=== PATIENT | male | born 1955 | race Caucasian/White ===

== ENCOUNTER 2023-01-01 16:18 | Inpatient (IN) | payer MEDICARE, OTHER ==
[~2023-01-01] VITALS: Ht 185.4 cm; Wt 78.5 kg
--- NOTE | 2023-01-01 16:35 | NUR ---
COVID SWAB COLLECTED AND SENT TO LAB
[2023-01-01 17:22] LABS: BASOPHILS % (AUTO) 0.2 % (0.0-2.0); EOSINOPHILS % (AUTO) 7.2 % (0.0-6.0); HEMATOCRIT 34 % (39-51); HEMOGLOBIN 9.5 g/dL (13.5-17.5); LYMPHOCYTES # (AUTO) 1.3 K/uL (0.8-4.8); MEAN CORPUSCULAR HGB CONC 28 g/dl (31.0-36.0); MEAN CORPUSCULAR VOLUME 114 fL (80-96); MONOCYTES # (AUTO) 0.8 K/uL (0.1-1.30); NEUTROPHILS % (AUTO) 44.6 % (43.0-81.0); PLATELET COUNT (AUTO) 77 K/uL (150-450); WHITE BLOOD COUNT (AUTO) 4.5 K/uL (4.3-11.0)
[2023-01-01 17:26] LABS: CALCIUM, SERUM 9.1 mg/dL (8.5-10.1); CARBON DIOXIDE 12 mmol/L (21-32); CHLORIDE 110 mmol/L (98-107); CREATININE 1.9 mg/dL (0.6-1.3); GLUCOSE 189 mg/dL (74-106); POTASSIUM 5.4 mmol/L (3.5-5.1); SODIUM SERUM 134 mmol/L (136-145); UREA NITROGEN, BLOOD 39 mg/dL (7-18)
[2023-01-01] MEDS ORDERED: AMLO5TAB4 PO (17:48)
[2023-01-01] MEDS ORDERED: ALOG12.52 PO (17:48)
[2023-01-01] MEDS ORDERED: OLAN20TA3 PO (17:48)
[2023-01-01] MEDS ORDERED: CARV12.5 PO (17:48)
[2023-01-01] MEDS ORDERED: FERR325T23 PO (17:48)
[2023-01-01] MEDS ORDERED: LACT10SO58 PO (17:48)
[2023-01-01] MEDS ORDERED: DIVA500T2 PO (17:48)
[2023-01-01] MEDS ORDERED: ACET325T53 PO (17:48)
[2023-01-01] MEDS ORDERED: GEMF600T90 PO (17:48)
[2023-01-01] MEDS ORDERED: ASPI-1169 PO (17:48)
[2023-01-01 18:30] LABS: EOSINOPHILS % (MANUAL) 10 % (0-4); LYMPHOCYTES % (MANUAL) 33 % (16-48); MONOCYTES % (MANUAL) 8 % (0-11.0); NEUTROPHILS % (MANUAL) 49 (42-76)
[2023-01-01 18:57] LABS: ALANINE AMINOTRANSFERASE 19 U/L (12-78); ALBUMIN 2.8 g/dL (3.4-5.0); ALKALINE PHOSPHATASE 111 U/L (46-116); ASPARTATE AMINOTRANSFERASE 25 U/L (15-37); BILIRUBIN,DIRECT 0.1 mg/dL (0.0-0.2); BILIRUBIN,TOTAL 0.1 mg/dL (0.2-1.0); TOTAL PROTEIN, SERUM 6.7 g/dL (6.4-8.2)
[2023-01-01 19:07] LABS: ACETAMINOPHEN < 10 ug/ml (10-30)
[2023-01-01 19:23] LABS: ALCOHOL, BLOOD < 3 mg/dL (0-0)
[2023-01-01] MEDS ORDERED: IV NS 0.9% 1,000 ML BAG IV ONE (19:30)
--- NOTE | 2023-01-01 20:18 | NUR ---
IV LINE ESTABLISHED, [id number]
--- NOTE | 2023-01-01 22:00 | NUR ---
REPORT GIVEN TO KENDRA QUINTANA FOR CONTINUATION OF CARE.
[2023-01-01 22:20] VITALS: BP 169/97
--- NOTE | 2023-01-01 22:22 | NUR ---
PT TRANSPORT ED OT UNIT ON [facility]. PT IS IN STABLE CONDITION. NAD NOTED
--- NOTE | 2023-01-01 22:23 | NUR ---
MS RN ADMITTING NOTES PT ARRIVED TO UNIT VIA GURNEY BY ER STAFF, ABLE TO AMBULATE TO BED WITH NO ASSIST. ORIENTED TO UNIT AND HOW TO USE CALL LIGHT. A/O X3, ABLE TO MAKE NEEDS KNOWN, COOPERATIVE, GETS ANXIOUS WHEN TALKING ABOUT HIS PREVIOUS FACILITY, [facility], SAYING HE WOULD RATHER GO HOMELESS THAN GO BACK. WEARING MULTIPLE LAYERS OF CLOTHING AND 4 BAGS OF BELONGINGS. DOCUMENTED AND PLACED IN CHART. ON RA WITH NO SOB. NO DISTRESS NOTED. DENIES PAIN AT THIS TIME AND STATING HE JUST WANTS TO GO SLEEP. SKIN INTACT WITH GENERAL DRYNESS ON BILATERAL TOES NOTED, DOCUMENTED IN CHART. PATIENT REFUSED TO TAKE OFF PANTS BUT WAS ABLE TO ASSESS SACRUM AND BILATERAL LEGS WITH NO ISSUES NOTED. IV ACCESS R HAND #20G, PATENT AND INTACT, FLUSHING WELL. SAFETY PRECAUTIONS PUT IN PLACE: BED LOCKED AND IN LOWEST POSITION, SIDE RAILS UP X2, BED ALARM ON, CALL LIGHT AND TRAY TABLE WITHIN REACH. WILL CONTINUE TO MONITOR AND ASSIST.
[2023-01-01] MEDS ORDERED: ONDANSETRON HCL/PF 4 MG/2 ML VIAL IVP PRN (22:30)
[2023-01-01] MEDS ORDERED: MAG HYDROX/AL HYDROX/SIMETH 30 ML UDC PO PRN (22:30)
[2023-01-01] MEDS ORDERED: MAGNESIUM HYDROXIDE 30 ML UDC PO PRN (22:30)
[2023-01-01] MEDS ORDERED: ZOLPIDEM TARTRATE 5 MG TABLET PO PRN (22:30)
[2023-01-01] MEDS ORDERED: IV NS 0.9% 1,000 ML IV PRN (22:30)
[2023-01-01] MEDS ORDERED: ACETAMINOPHEN 325 MG TABLET PO PRN ×2 (22:30)
[2023-01-01] MEDS ORDERED: Z GUARD REMEDY 4 OZ OINT TP PRN (22:30)
[2023-01-02 06:07] LABS: BILIRUBIN,URINE NEGATIVE (NEGATIVE); COLOR,URINE YELLOW (YELLOW); LEUKOCYTE ESTERASE ,URINE NEGATIVE (NEGATIVE); NITRITE, URINE NEGATIVE (NEGATIVE); PROTEIN,URINE NEGATIVE (NEGATIVE); UGLUCOSE NEGATIVE (NEGATIVE); UROBILINOGEN,URINE 0.2 EU/dL (0.2)
[2023-01-02 06:43] LABS: BASOPHILS % (AUTO) 0.4 % (0.0-2.0); EOSINOPHILS % (AUTO) 9.3 % (0.0-6.0); HEMATOCRIT 27 % (39-51); LYMPHOCYTES # (AUTO) 1.6 K/uL (0.8-4.8); LYMPHOCYTES % (AUTO) 37.8 % (20.0-44.0); MEAN CORPUSCULAR HGB CONC 33 g/dl (31.0-36.0); MEAN CORPUSCULAR VOLUME 98 fL (80-96); MONOCYTES # (AUTO) 0.9 K/uL (0.1-1.30); MONOCYTES % (AUTO) 22.2 % (2.0-12.0); NEUTROPHILS # (AUTO) 1.2 K/uL (1.8-8.9); NEUTROPHILS % (AUTO) 30.3 % (43.0-81.0); PLATELET COUNT (AUTO) 239 K/uL (150-450); RED BLOOD CELL COUNT(AUTO) 2.77 MIL/uL (4.5-6.0); WHITE BLOOD COUNT (AUTO) 4.1 K/uL (4.3-11.0)
--- NOTE | 2023-01-02 06:47 | NUR ---
MS RN CLOSING NOTES PT SLEEPING IN BED AT THIS TIME. A/O X3, ABLE TO MAKE NEEDS KNOWN, COOPERATIVE. STABLE ON RA WITH NO SOB. NO DISTRESS NOTED. NPO MAINTAINED UNTIL SWALLOW EVAL. IV ACCESS R HAND #20G, PATENT AND INTACT, FLUSHING WELL, RUNNING NS @ 125 ML/HR. ALL CARE PROVIDED. SAFETY PRECAUTIONS MAINTAINED: BED LOCKED AND IN LOWEST POSITION, SIDE RAILS UP X2, BED ALARM ON, CALL LIGHT AND TRAY TABLE WITHIN REACH. WILL ENDORSE [facility] TO DAY SHIFT NURSE.
[2023-01-02 07:06] LABS: CREATININE 1.7 mg/dL (0.6-1.3); MAGNESIUM 2.1 mg/dL (1.8-2.4); PHOSPHORUS 3.3 mg/dL (2.5-4.9); POTASSIUM 4.4 mmol/L (3.5-5.1)
--- NOTE | 2023-01-02 07:25 | NUR ---
MS RN OPENING NOTES RECEIVED PATIENT WALKING TO THE REST ROOM WITH HIS IV POLE, A/O X3, PLEASANT, ABLE TO MAKE NEEDS KNOWN, COOPERATIVE. STABLE ON RA WITH NO SOB. NOT IN ANY APPARENT DISTRESS NOTED. PT WAS ASKING FOR FOOD BUT ON NPO FOR DYSPHAGIA. WILL CONDUCT A NURSING SWALLOW EVALUATION FIRST, WILL MONITOR. IV ACCESS R HAND G#20. PATENT AND INTACT, FLUSHING WELL WITH RUNNING NS @ 125 ML/HR. PATIENT REFUSES TO CHANGE IN HOSPITAL GOWN, PATIENT HAS 3-4 BAGS FULL OF BELONGINGS AT BEDSIDE. SAFETY PRECAUTIONS MAINTAINED: BED LOCKED AND IN LOWEST POSITION, SIDE RAILS UP X2, BED ALARM ON, CALL LIGHT AND TRAY TABLE WITHIN EASY REACH. WILL CONTINUE PLAN OF CARE.
[2023-01-02 08:00] VITALS: BP 142/76
--- NOTE | 2023-01-02 08:20 | NUR ---
RN NOTES - PATIENT WAS ABLE TO PASS SIMPLE NURSING EVAL TOOL, DR PALAK SHER AWARE. FOOD ORDERED FROM THE KITCHEN.
--- NOTE | 2023-01-02 08:25 | NUR ---
RN NOTES - PSYCHE CONSULT WITH DR LUZ MARIA MONROE MD AWARE.
[2023-01-02] MEDS ORDERED: FERROUS SULFATE (325 MG) 325 MG/TAB TABLET PO SCH (09:00)
[2023-01-02] MEDS ORDERED: ASPIRIN 81 MG TAB.CHEW PO SCH (09:00)
[2023-01-02] MEDS ORDERED: ALOGLIPTIN BENZOATE 12.5 MG PO SCH (09:00)
[2023-01-02] MEDS ORDERED: GEMFIBROZIL 600 MG TABLET PO SCH (09:00)
[2023-01-02] MEDS ORDERED: LACTULOSE 10 G/15 ML UDC (PYXIS) PO SCH (09:00)
[2023-01-02] MEDS ORDERED: AMLODIPINE BESYLATE 5 MG TABLET PO SCH (09:00)
[2023-01-02] MEDS ORDERED: CARVEDILOL 12.5 MG TABLET PO SCH (09:00)
[2023-01-02] MEDS ORDERED: DIVALPROEX SODIUM 500 MG TABLET.DR PO SCH (09:00)
[2023-01-02] MEDS ORDERED: LINAGLIPTIN 5 MG TABLET PO SCH (09:00)
[2023-01-02] MEDS ORDERED: IV D5/0.45 NACL 1,000 ML IV SCH (09:00)
--- NOTE | 2023-01-02 09:00 | NUR ---
RN NOTES - PT REFUSED PT EVAL AND WANTED TO LEAVE AMA
--- NOTE | 2023-01-02 09:35 | NUR ---
AMA NOTES PATIENT IS AOX3-4 WAS ASSESSED AND SEEN BY DR PALAK SHER AT BEDSIDE, PATIENT REFUSING MEDS AND PHYSICAL THERAPY. VERBALIZED THAT HE WANTS TO LEAVE THE HOSPITAL AMA AND WON'T TELL WHERE HE'S GOING. PATIENT DIDNT WANT TO BRING HIS BAGS WITH HIM DESPITE ENCOURAGEMENT. SECURITY WAS ASKED FOR ASSISTANCE BUT HE STILL REFUSED, HE SAID TO THROW AWAY HIS BELONGINGS WITNESSED BY JOB SITE SUPERVISOR AND CHARGE NURSE WELL. PATIENT IS AWARE OF THE RISKS AND CONSEQUENCES OF LEAVING AMA BUT STILL INSISTED IN LEAVING. PT SIGNED AMA FORM, IV ACCESS REMOVED AND PRESSURE GAUZE APPLIED, NO BLEEDING NOTED. ARM BAND REMOVED. PT LEFT THE UNIT IN JUST HIS CLOTHES AND SHOES AMBULATORY ACCOMPANIED BY SECURITY AT AROUND 0930 AM. IS AWARE.
[2023-01-02 14:20] LABS: BAND % (MANUAL) 2 % (0.0-5.0); EOSINOPHILS % (MANUAL) 11 % (0-4); LYMPHOCYTES % (MANUAL) 37 % (16-48); MONOCYTES % (MANUAL) 20 % (0-11.0); NEUTROPHILS % (MANUAL) 30 (42-76)
[2023-01-02] MEDS ORDERED: OLANZAPINE 10 MG TABLET PO SCH (22:00)
== END 2023-01-02 09:45 | disposition left against medical advice (07) | DRG 682 ==
LOC: ER 18:10 → MED 21:51
PROVIDERS: ADMIT Nurse Practitioner Acute Care; ATTEND Internal Medicine
DX: N17.0 Acute kidney failure with tubular necrosis (principal); G93.41 Metabolic encephalopathy; F20.0 Paranoid schizophrenia; E44.0 Moderate protein-calorie malnutrition; E86.0 Dehydration; R62.7 Adult failure to thrive; Z88.8 Allergy status to other drugs, medicaments and biological substances; Z79.82 Long term (current) use of aspirin; Z79.899 Other long term (current) drug therapy; E11.9 Type 2 diabetes mellitus without complications; I10 Essential (primary) hypertension; E78.5 Hyperlipidemia, unspecified; D64.9 Anemia, unspecified; E87.5 Hyperkalemia; F32.9 Major depressive disorder, single episode, unspecified; F03.90 Unspecified dementia, unspecified severity, without behavioral disturbance, psychotic disturbance, mood disturbance, and anxiety; E88.09 Other disorders of plasma-protein metabolism, not elsewhere classified
CPT/HCPCS: 36415; 76770-TC; 80048-TC; 80076-TC; 82962-TC; 83735-TC; 84100-TC; 85025-TC; 87081-TC; C9803; G0378; G0480; J3490; J7030

== ENCOUNTER 2023-01-02 14:17 | Inpatient (IN) | payer MEDICARE, OTHER ==
[~2023-01-02] VITALS: Ht 188 cm; Wt 81.6 kg
[~2023-01-02 14:17] MED LIST: ACET325T53 PO; ALOG12.52 PO; AMLO5TAB4 PO; ASPI-1169 PO; CARV12.5 PO; DIVA500T2 PO; FERR325T23 PO; GEMF600T90 PO; LACT10SO58 PO; OLAN20TA3 PO
--- NOTE | 2023-01-02 14:30 | NUR ---
Security notified - pt wanding for safety done. Suicidal precautions initated. Sitter Lauren aware- on direct line of sight and increase rounding
--- NOTE | 2023-01-02 15:00 | NUR ---
Pt aware of plan of care. Urine sent
[2023-01-02 15:13] LABS: BASOPHILS % (AUTO) 0.3 % (0.0-2.0); EOSINOPHILS % (AUTO) 8.2 % (0.0-6.0); HEMATOCRIT 28 % (39-51); LYMPHOCYTES # (AUTO) 1.1 K/uL (0.8-4.8); LYMPHOCYTES % (AUTO) 25.7 % (20.0-44.0); MEAN CORPUSCULAR HGB CONC 32 g/dl (31.0-36.0); MEAN CORPUSCULAR VOLUME 99 fL (80-96); MONOCYTES # (AUTO) 0.6 K/uL (0.1-1.30); NEUTROPHILS # (AUTO) 2.1 K/uL (1.8-8.9); NEUTROPHILS % (AUTO) 50.8 % (43.0-81.0); PLATELET COUNT (AUTO) 256 K/uL (150-450); RED BLOOD CELL COUNT(AUTO) 2.83 MIL/uL (4.5-6.0); WHITE BLOOD COUNT (AUTO) 4.2 K/uL (4.3-11.0)
[2023-01-02 15:46] LABS: BILIRUBIN,URINE NEGATIVE (NEGATIVE); COLOR,URINE YELLOW (YELLOW); LEUKOCYTE ESTERASE ,URINE NEGATIVE (NEGATIVE); NITRITE, URINE NEGATIVE (NEGATIVE); PROTEIN,URINE 1+ mg/dl (NEGATIVE); UGLUCOSE NEGATIVE (NEGATIVE); UROBILINOGEN,URINE 0.2 EU/dL (0.2)
[2023-01-02 15:55] LABS: BACTERIA,URINE None seen /HPF (None Seen); MUCUS,URINE Few /LPF (None Seen); RBC,URINE 0-2 /HPF (0-2); WBC,URINE 0-2 /HPF (0-3)
[2023-01-02 15:59] LABS: ALANINE AMINOTRANSFERASE 16 U/L (12-78); ALBUMIN 2.6 g/dL (3.4-5.0); ALKALINE PHOSPHATASE 103 U/L (46-116); ASPARTATE AMINOTRANSFERASE 21 U/L (15-37); BILIRUBIN,DIRECT 0.1 mg/dL (0.0-0.2); BILIRUBIN,TOTAL 0.1 mg/dL (0.2-1.0); CALCIUM, SERUM 8.7 mg/dL (8.5-10.1); CARBON DIOXIDE 18 mmol/L (21-32); CHLORIDE 113 mmol/L (98-107); CREATININE 1.8 mg/dL (0.6-1.3); GLUCOSE 246 mg/dL (74-106); SODIUM SERUM 141 mmol/L (136-145); TOTAL PROTEIN, SERUM 6.4 g/dL (6.4-8.2); UREA NITROGEN, BLOOD 33 mg/dL (7-18)
[2023-01-02 16:04] LABS: ALCOHOL, BLOOD < 3 mg/dL (0-0)
[2023-01-02 16:17] LABS: EOSINOPHILS % (MANUAL) 7 % (0-4); LYMPHOCYTES % (MANUAL) 18 % (16-48); MONOCYTES % (MANUAL) 15 % (0-11.0); NEUTROPHILS % (MANUAL) 59 (42-76); REACTIVE LYMPHOCYTES 1 % (0-0)
--- NOTE | 2023-01-02 17:08 | NUR ---
Awaiting psych clearance and placement. NO acute changes
--- NOTE | 2023-01-02 17:14 | NUR ---
Pt medically cleared for alex-psych admission. Going to room 214. Dinner provided
[2023-01-02] MEDS ORDERED: LORAZEPAM 0.5 MG TABLET PO PRN (18:00)
[2023-01-02] MEDS ORDERED: MAG HYDROX/AL HYDROX/SIMETH 30 ML UDC PO PRN (18:00)
[2023-01-02] MEDS ORDERED: BLOOD SUGAR DIAGNOSTIC 1 EACH STRIP IN ONE (18:00)
[2023-01-02] MEDS ORDERED: MAGNESIUM HYDROXIDE 30 ML UDC PO PRN (18:00)
[2023-01-02] MEDS ORDERED: ACETAMINOPHEN 325 MG TABLET PO PRN ×2 (18:00→22:30)
[2023-01-02 18:19] VITALS: BP 152/72
--- NOTE | 2023-01-02 18:42 | NUR ---
Admitted voluntary a 67 years old male for paranoia and auditory hallucinations. Pt. is scared that people are after him and pt. is with auditory hallucinations and the voices is telling him that he is not good. Pt. left AMA in the medical floor this morning and came back to ER for voluntary admission to [facility]. ER doctor cleared pt. for psych admission as per report by Rajinder (ER nurse). Pt. arrive in the unit via a wheelchair and wheeled by ER staff. Pt. escorted to room 216B. V/S taken, contraband taken and pt. signed the admissions papers. Dr. Paige made aware of the admission and with orders. Contacted Dr. Martinez and left a message regarding the admission and awaiting for the call back. Will endorse to the incoming nurse for the completion of the admission. Addendum: 01/02/23 at 1852 by JOE LUNA RN Pt. denies suicidal and homicidal
--- NOTE | 2023-01-02 20:30 | NUR ---
RN NOTES: PATIENT RESTING IN HIS ROOM . NO APPARENT DISTRESS NOTED, PATIENT EASILY AGITATED/IRRITABLE, PARANOID ,GUARDER NEEDY, NEEDS FREQUENTLY REDIRECTIONS ,DENIES SI/HI/ AT THIS TIME. SAFETY PRECAUTIONS MAINTAINED. WILL CONTINUE TO MONITOR Q15MIN ROUNDS FOR SAFETY AND BEHAVIOR.
[2023-01-02 21:00] VITALS: BP 134/68
[2023-01-03] MEDS ORDERED: DEXTROSE 50%-WATER 50 ML DISP.SYRIN IV PRN (01:30)
[2023-01-03] MEDS ORDERED: *INSULIN REGULAR(HUMULIN R)HUM 100 UNIT/ML VIAL SQ PRN (01:30)
--- NOTE | 2023-01-03 05:59 | NUR ---
RN NOTES: REFUSED SKIN ASSESSMENT AND PHOTOS TAKEN PT. REFUSED SKIN ASSESSMENT AND PHOTOS TAKEN , PT. BEHAVIOUR VERY UNCOOPERTIVE , AGGRESSIVE ,PARANOID , ENCOURAGED X3 BUT PT. STRONGLY REFUSED AND PT. STATES LIVE ME ALONE,
--- NOTE | 2023-01-03 06:53 | NUR ---
RN NOTES: CALLED AND LEFT VOICE MAIL MESSAGES TO CHANTALE HOFFMANN # [phone], REGARDING ABOUT PT. ADMITTED TO [facility] .
[2023-01-03 07:45] LABS: ALBUMIN 2.3 g/dL (3.4-5.0); BILIRUBIN,TOTAL 0.1 mg/dL (0.2-1.0); CALCIUM, SERUM 8.7 mg/dL (8.5-10.1); CREATININE 1.6 mg/dL (0.6-1.3); POTASSIUM 4.2 mmol/L (3.5-5.1)
[2023-01-03 08:00] VITALS: BP 126/56
[2023-01-03] MEDS: BLOOD SUGAR DIAGNOSTIC 1 EACH STRIP VI SCH ×4 (08:29→20:36)
[2023-01-03] MEDS: ASPIRIN 81 MG TAB.CHEW PO SCH (08:30)
[2023-01-03] MEDS: CARVEDILOL 12.5 MG TABLET PO SCH ×2 (08:30→17:05)
[2023-01-03] MEDS: GEMFIBROZIL 600 MG TABLET PO SCH ×2 (08:30→17:05)
[2023-01-03] MEDS: FERROUS SULFATE (325 MG) 325 MG/TAB TABLET PO SCH (08:30)
[2023-01-03] MEDS: LACTULOSE 10 G/15 ML UDC (PYXIS) PO SCH (08:30)
[2023-01-03] MEDS: AMLODIPINE BESYLATE 5 MG TABLET PO SCH (08:31)
[2023-01-03] MEDS: LINAGLIPTIN 5 MG TABLET PO SCH (08:31)
--- NOTE | 2023-01-03 08:31 | NUR ---
GPS/RN PT REFUSED INSULIN COVERAGE AND AM MEDS. OFFERED X3
[2023-01-03] MEDS ORDERED: ALOGLIPTIN BENZOATE 12.5 MG PO SCH (09:00)
[2023-01-03] MEDS: OLANZAPINE 5 MG TABLET PO SCH ×2 (12:15→17:04)
[2023-01-03] MEDS: DIVALPROEX SODIUM 500 MG TABLET.DR PO SCH ×2 (12:15→20:35)
[2023-01-03] MEDS: INSULIN REGULAR, HUMAN 100 UNIT/ML 3 ML VIAL SQ PRN (12:22)
--- NOTE | 2023-01-03 12:23 | NUR ---
GPS RN NOTES - PT ALLOWED TO CHECK FOR POC BS -172, ADVISED NEED COVERAGE FOR INSULIN BUT REFUSED DESPITE EDUCATION.
[2023-01-03 16:00] VITALS: BP 156/68
--- NOTE | 2023-01-03 17:00 | NUR ---
GPS RN NOTES -CLEAN CATCH URINE COLLECTED, LAB IS AWARE, AWAITING POLITICAL CARTOONIST
[2023-01-03 20:24] VITALS: BP 134/63
--- NOTE | 2023-01-04 04:33 | NUR ---
RN CLOSING NOTES: ALERT AND ORIENTATED x2 WAS IN BED IN HIS ROOM THIS 12 HOURS NOTED SLEEPS WITH HIS CLOTHES AND SHOES ON TOOK HS MEDICATIONS AND WAS COOPERATIVE AND PLEASANT. BLOOD SUGAR 177 REFUSED INSULIN COVERAGE ..."I DON'T NEED IT, IT WILL COME DOWN ON ITS OWN,DON'T GIVE IT TO ME" HE DIDN'T WANT TO HAVE ME EXPLAIN WHY AND SHOULD TAKE INSULIN. HE WAS PLEASANT ABOUT IT. NO PRNS THIS 12 HOURS
[2023-01-04 07:02] LABS: BASOPHILS % (AUTO) 0.4 % (0.0-2.0); EOSINOPHILS % (AUTO) 8.5 % (0.0-6.0); HEMATOCRIT 28 % (39-51); HEMOGLOBIN 9.2 g/dL (13.5-17.5); LYMPHOCYTES # (AUTO) 2.5 K/uL (0.8-4.8); LYMPHOCYTES % (AUTO) 45.9 % (20.0-44.0); MEAN CORPUSCULAR HGB CONC 33 g/dl (31.0-36.0); MEAN CORPUSCULAR VOLUME 99 fL (80-96); MONOCYTES # (AUTO) 0.7 K/uL (0.1-1.30); NEUTROPHILS # (AUTO) 1.8 K/uL (1.8-8.9); NEUTROPHILS % (AUTO) 32.2 % (43.0-81.0); PLATELET COUNT (AUTO) 263 K/uL (150-450); RED BLOOD CELL COUNT(AUTO) 2.86 MIL/uL (4.5-6.0); WHITE BLOOD COUNT (AUTO) 5.5 K/uL (4.3-11.0)
[2023-01-04 07:25] LABS: ALBUMIN 2.4 g/dL (3.4-5.0); BILIRUBIN,TOTAL 0.2 mg/dL (0.2-1.0); CALCIUM, SERUM 8.8 mg/dL (8.5-10.1); CREATININE 1.6 mg/dL (0.6-1.3); POTASSIUM 4.5 mmol/L (3.5-5.1); TOTAL PROTEIN, SERUM 6.2 g/dL (6.4-8.2)
[2023-01-04] MEDS: BLOOD SUGAR DIAGNOSTIC 1 EACH STRIP VI SCH ×4 (07:30→21:47)
[2023-01-04 08:00] VITALS: BP 133/75
[2023-01-04] MEDS: LACTULOSE 10 G/15 ML UDC (PYXIS) PO SCH (09:10)
[2023-01-04] MEDS: ASPIRIN 81 MG TAB.CHEW PO SCH (09:10)
[2023-01-04] MEDS: CARVEDILOL 12.5 MG TABLET PO SCH ×2 (09:11→16:44)
[2023-01-04] MEDS: FERROUS SULFATE (325 MG) 325 MG/TAB TABLET PO SCH (09:11)
[2023-01-04] MEDS: DIVALPROEX SODIUM 500 MG TABLET.DR PO SCH ×2 (09:11→21:18)
[2023-01-04] MEDS: GEMFIBROZIL 600 MG TABLET PO SCH ×2 (09:12→16:43)
[2023-01-04] MEDS: OLANZAPINE 5 MG TABLET PO SCH ×2 (09:13→16:43)
[2023-01-04] MEDS: LINAGLIPTIN 5 MG TABLET PO SCH (09:13)
[2023-01-04] MEDS: AMLODIPINE BESYLATE 5 MG TABLET PO SCH (09:13)
[2023-01-04] MEDS: INSULIN REGULAR, HUMAN 100 UNIT/ML 3 ML VIAL SQ PRN ×2 (11:24→16:51)
--- NOTE | 2023-01-04 11:26 | NUR ---
Treatment Plan: Pt refused to sign treatment plan and was suspicious even after SW explaining.
--- NOTE | 2023-01-04 11:26 | NUR ---
ALEXANDRA Clinical Note: Pt admitted as a voluntary pt. Pt wants a place to go to and wants to get his medications adjusted. Patient currently resides at [address] [place] [address]; ([phone]). Pt does not want to return back and would want a SNF. Pt does not have any supportive contact at this time.
--- NOTE | 2023-01-04 11:26 | NUR ---
ALEXANDRA Initial Discharge Plan: Patient currently resides at [address] [place] [address]; ([phone]). Pt does not want to return back and would want a SNF. Pt does not have any supportive contact at this time. ALEXANDRA will work with the MD and pt to help coordinate appropriate discharge.
--- NOTE | 2023-01-04 14:12 | NUR ---
LPS Conservator: ALEXANDRA contacted pt's person to notify Elisa ([phone]). She stated that she is from the public guardian office and she is the LPS conservator. She will fax this senior writer minute order and detain and treat. She stated that pt was from [facility] and would want pt back to [facility]. ALEXANDRA notified [facility] charge nurse and Dr. Paige.
--- NOTE | 2023-01-04 14:13 | NUR ---
Facility Contact: ALEXANDRA contacted Inderjit foreman from [facility] ([phone]) and notified that pt is at the hospital and he stated that when pt is stable pt can return back.
--- NOTE | 2023-01-04 14:18 | NUR ---
LPS Conservator: ALEXANDRA contacted pt's person to notify Elisa ([phone]). She faxed this telegraphic typewriter mechanic detain and treat and minute order. ALEXANDRA placed in pt's chart and notified charge nurse Homa.
[2023-01-04 16:00] VITALS: BP 124/63
[2023-01-04 21:10] VITALS: BP 123/50
[2023-01-05 07:14] LABS: BASOPHILS % (AUTO) 0.4 % (0.0-2.0); EOSINOPHILS % (AUTO) 9.4 % (0.0-6.0); HEMATOCRIT 26 % (39-51); HEMOGLOBIN 8.6 g/dL (13.5-17.5); LYMPHOCYTES # (AUTO) 2.2 K/uL (0.8-4.8); LYMPHOCYTES % (AUTO) 42.8 % (20.0-44.0); MEAN CORPUSCULAR HGB CONC 33 g/dl (31.0-36.0); MEAN CORPUSCULAR VOLUME 99 fL (80-96); MONOCYTES # (AUTO) 0.8 K/uL (0.1-1.30); MONOCYTES % (AUTO) 14.9 % (2.0-12.0); NEUTROPHILS # (AUTO) 1.7 K/uL (1.8-8.9); NEUTROPHILS % (AUTO) 32.5 % (43.0-81.0); PLATELET COUNT (AUTO) 260 K/uL (150-450); RED BLOOD CELL COUNT(AUTO) 2.66 MIL/uL (4.5-6.0); WHITE BLOOD COUNT (AUTO) 5.1 K/uL (4.3-11.0)
[2023-01-05] MEDS: BLOOD SUGAR DIAGNOSTIC 1 EACH STRIP VI SCH ×4 (07:30→21:24)
[2023-01-05 07:33] LABS: ALBUMIN 2.3 g/dL (3.4-5.0); BILIRUBIN,TOTAL 0.1 mg/dL (0.2-1.0); CALCIUM, SERUM 8.8 mg/dL (8.5-10.1); CREATININE 1.6 mg/dL (0.6-1.3); POTASSIUM 4.6 mmol/L (3.5-5.1)
[2023-01-05 07:57] LABS: CREATININE, URINE 71.9 MG/DL (30.0-125.0)
[2023-01-05 08:00] VITALS: BP 130/56
[2023-01-05] MEDS: DIVALPROEX SODIUM 500 MG TABLET.DR PO SCH ×2 (09:10→21:26)
[2023-01-05] MEDS: FERROUS SULFATE (325 MG) 325 MG/TAB TABLET PO SCH (09:11)
[2023-01-05] MEDS: OLANZAPINE 5 MG TABLET PO SCH ×2 (09:11→16:19)
[2023-01-05] MEDS: ASPIRIN 81 MG TAB.CHEW PO SCH (09:11)
[2023-01-05] MEDS: LINAGLIPTIN 5 MG TABLET PO SCH (09:11)
[2023-01-05] MEDS: AMLODIPINE BESYLATE 5 MG TABLET PO SCH (09:11)
[2023-01-05] MEDS: CARVEDILOL 12.5 MG TABLET PO SCH ×2 (09:12→16:20)
[2023-01-05] MEDS: GEMFIBROZIL 600 MG TABLET PO SCH ×2 (09:12→16:19)
[2023-01-05] MEDS: LACTULOSE 10 G/15 ML UDC (PYXIS) PO SCH (09:12)
--- NOTE | 2023-01-05 13:31 | NUR ---
SW Note: SW spoke with pt multiple times today in regards to [facility] and stated that LPS would want pt to return back.
[2023-01-05 16:00] VITALS: BP 120/66
[2023-01-06] MEDS: BLOOD SUGAR DIAGNOSTIC 1 EACH STRIP VI SCH ×4 (07:30→22:00)
[2023-01-06 08:00] VITALS: BP 132/65
[2023-01-06] MEDS: OLANZAPINE 5 MG TABLET PO SCH ×2 (08:30→17:19)
[2023-01-06] MEDS: ASPIRIN 81 MG TAB.CHEW PO SCH (08:30)
[2023-01-06] MEDS: FERROUS SULFATE (325 MG) 325 MG/TAB TABLET PO SCH (08:30)
[2023-01-06] MEDS: GEMFIBROZIL 600 MG TABLET PO SCH ×2 (08:30→17:19)
[2023-01-06] MEDS: LACTULOSE 10 G/15 ML UDC (PYXIS) PO SCH (08:30)
[2023-01-06] MEDS: LINAGLIPTIN 5 MG TABLET PO SCH (08:30)
[2023-01-06] MEDS: CARVEDILOL 12.5 MG TABLET PO SCH ×2 (08:31→17:19)
[2023-01-06] MEDS: DIVALPROEX SODIUM 500 MG TABLET.DR PO SCH ×2 (08:31→21:48)
[2023-01-06] MEDS: AMLODIPINE BESYLATE 5 MG TABLET PO SCH (08:31)
--- NOTE | 2023-01-06 14:17 | NUR ---
NURSE NOTE: ENCOURAGED PT TO DRINK FLUIDS, BUT PT STATED THAT HE DOES NOT LIKE TO BECAUSE IT MAKES HIM GO TO THE BATHROOM TOO MUCH. ENCOURAGED TO TRY.
[2023-01-06 15:19] LABS: BASOPHILS % (AUTO) 0.3 % (0.0-2.0); EOSINOPHILS % (AUTO) 9.2 % (0.0-6.0); HEMATOCRIT 29 % (39-51); HEMOGLOBIN 9.4 g/dL (13.5-17.5); LYMPHOCYTES # (AUTO) 1.5 K/uL (0.8-4.8); LYMPHOCYTES % (AUTO) 29.9 % (20.0-44.0); MEAN CORPUSCULAR HGB CONC 32 g/dl (31.0-36.0); MEAN CORPUSCULAR VOLUME 99 fL (80-96); MONOCYTES # (AUTO) 0.6 K/uL (0.1-1.30); MONOCYTES % (AUTO) 12.5 % (2.0-12.0); NEUTROPHILS # (AUTO) 2.5 K/uL (1.8-8.9); NEUTROPHILS % (AUTO) 48.1 % (43.0-81.0); PLATELET COUNT (AUTO) 297 K/uL (150-450); RED BLOOD CELL COUNT(AUTO) 2.93 MIL/uL (4.5-6.0); WHITE BLOOD COUNT (AUTO) 5.1 K/uL (4.3-11.0)
[2023-01-06 15:36] LABS: ALBUMIN 2.8 g/dL (3.4-5.0); BILIRUBIN,TOTAL 0.1 mg/dL (0.2-1.0); CREATININE 1.8 mg/dL (0.6-1.3); TOTAL PROTEIN, SERUM 7.1 g/dL (6.4-8.2)
[2023-01-06 16:00] VITALS: BP 127/64
--- NOTE | 2023-01-06 17:35 | NUR ---
NURSE NOTE: PT ANXIOUS AT THIS TIME. REQUESTED KLONOPIN AT THIS TIME. KLONOPIN ADMINISTERED ORDERED. PT RAYMUNDO WELL, WILL CONT TO MONITOR. Addendum: 01/06/23 at 1759 by REBECA SALMON RN WRONG PT.
[2023-01-06 21:33] VITALS: BP 116/59
--- NOTE | 2023-01-06 21:47 | NUR ---
ACETYLENE BURNER NOTES: Patient refused to checked blood sugar, stating that he is not diabetic and does not check it at home. Explain why he needs to monitor blood sugar level and encourage patient, but still declined.
[2023-01-06] MEDS: ZOLPIDEM TARTRATE 5 MG TABLET PO PRN (21:59)
[2023-01-07] MEDS: BLOOD SUGAR DIAGNOSTIC 1 EACH STRIP VI SCH ×4 (07:40→21:10)
[2023-01-07 08:00] VITALS: BP 112/64
[2023-01-07] MEDS: LINAGLIPTIN 5 MG TABLET PO SCH (08:41)
[2023-01-07] MEDS: LACTULOSE 10 G/15 ML UDC (PYXIS) PO SCH (08:41)
[2023-01-07] MEDS: ASPIRIN 81 MG TAB.CHEW PO SCH (08:41)
[2023-01-07] MEDS: DIVALPROEX SODIUM 500 MG TABLET.DR PO SCH ×2 (08:41→20:51)
[2023-01-07] MEDS: GEMFIBROZIL 600 MG TABLET PO SCH ×2 (08:41→17:00)
[2023-01-07] MEDS: FERROUS SULFATE (325 MG) 325 MG/TAB TABLET PO SCH (08:41)
[2023-01-07] MEDS: OLANZAPINE 5 MG TABLET PO SCH ×2 (08:41→17:00)
[2023-01-07] MEDS: AMLODIPINE BESYLATE 5 MG TABLET PO SCH (08:42)
[2023-01-07] MEDS: CARVEDILOL 12.5 MG TABLET PO SCH ×2 (08:42→17:00)
[2023-01-07 12:03] LABS: BASOPHILS % (AUTO) 0.3 % (0.0-2.0); EOSINOPHILS % (AUTO) 11.4 % (0.0-6.0); HEMATOCRIT 26 % (39-51); HEMOGLOBIN 8.4 g/dL (13.5-17.5); LYMPHOCYTES # (AUTO) 1.7 K/uL (0.8-4.8); LYMPHOCYTES % (AUTO) 39.3 % (20.0-44.0); MEAN CORPUSCULAR HGB CONC 32 g/dl (31.0-36.0); MEAN CORPUSCULAR VOLUME 99 fL (80-96); MONOCYTES # (AUTO) 0.6 K/uL (0.1-1.30); MONOCYTES % (AUTO) 13.8 % (2.0-12.0); NEUTROPHILS # (AUTO) 1.5 K/uL (1.8-8.9); NEUTROPHILS % (AUTO) 35.2 % (43.0-81.0); PLATELET COUNT (AUTO) 286 K/uL (150-450); RED BLOOD CELL COUNT(AUTO) 2.64 MIL/uL (4.5-6.0); WHITE BLOOD COUNT (AUTO) 4.3 K/uL (4.3-11.0)
[2023-01-07 12:17] LABS: ALBUMIN 2.3 g/dL (3.4-5.0); BILIRUBIN,TOTAL 0.1 mg/dL (0.2-1.0); CALCIUM, SERUM 8.7 mg/dL (8.5-10.1); CREATININE 1.7 mg/dL (0.6-1.3); POTASSIUM 5.4 mmol/L (3.5-5.1); TOTAL PROTEIN, SERUM 6.1 g/dL (6.4-8.2)
[2023-01-07 16:00] VITALS: BP 107/68
--- NOTE | 2023-01-07 18:30 | NUR ---
RN-NOTES PATIENT LYING IN BED AWAKE,A/OX2 GUARDED,NO ACUTE DISTRESS NOTED. COOPERATIVE WITH STAFF,SELECTIVE WITH MEDICATIONS.EPISODE OF REFUSING ACCU CHECK . AMBULATORY STEADY GAIT.ABLE TO VERBALIZED MAKE NEEDS KNOWN TO THE STAFF.ALL NEEDS ATTENDED AND ANTICIPATED. WILL CONT. MONITORING FOR SAFETY AND BEHAVIOR.WILL ENDORSE TO INCOMING NURSE FOR THE CONTINUITY OF CARE.
[2023-01-07 20:00] VITALS: BP 121/60
--- NOTE | 2023-01-07 21:10 | NUR ---
RN NOTES: REFUSED ACCU CHECK PT. REFUSED ACCU CHECK , PT. BEHAVIOUR UNCOOPERTIVE , EASILY AGIATED ,PARANOID , ENCOURAGED X3 BUT PT. STRONGLY REFUSED AND PT. STATES LIVE ME ALONE,
[2023-01-08] MEDS: BLOOD SUGAR DIAGNOSTIC 1 EACH STRIP VI SCH ×4 (07:30→22:00)
[2023-01-08 08:00] VITALS: BP 124/64
[2023-01-08] MEDS: DIVALPROEX SODIUM 500 MG TABLET.DR PO SCH ×2 (08:59→20:41)
[2023-01-08] MEDS: OLANZAPINE 5 MG TABLET PO SCH ×2 (08:59→16:42)
[2023-01-08] MEDS: FERROUS SULFATE (325 MG) 325 MG/TAB TABLET PO SCH (08:59)
[2023-01-08] MEDS: ASPIRIN 81 MG TAB.CHEW PO SCH (08:59)
[2023-01-08] MEDS: LINAGLIPTIN 5 MG TABLET PO SCH (08:59)
[2023-01-08] MEDS: LACTULOSE 10 G/15 ML UDC (PYXIS) PO SCH (09:00)
[2023-01-08] MEDS: GEMFIBROZIL 600 MG TABLET PO SCH ×2 (09:00→16:41)
[2023-01-08] MEDS: CARVEDILOL 12.5 MG TABLET PO SCH ×2 (09:00→16:42)
[2023-01-08] MEDS: AMLODIPINE BESYLATE 5 MG TABLET PO SCH (09:00)
[2023-01-08 16:00] VITALS: BP 107/61
--- NOTE | 2023-01-08 18:28 | NUR ---
RN-NOTES PATIENT LYING IN BED AWAKE,A/OX2 GUARDED,NO ACUTE DISTRESS NOTED. COOPERATIVE WITH STAFF,SELECTIVE WITH MEDICATIONS.REFUSED ACCU CHECK THIS SHIFT DESPITE EXPLANATIONS RISK AND BENEFITS . AMBULATORY STEADY GAIT.ABLE TO VERBALIZED MAKE NEEDS KNOWN TO THE STAFF.ALL NEEDS ATTENDED AND ANTICIPATED. WILL CONT. MONITORING FOR SAFETY AND BEHAVIOR.WILL ENDORSE TO INCOMING NURSE FOR THE CONTINUITY OF CARE.
[2023-01-08 20:05] VITALS: BP 133/65
[2023-01-08 20:51] VITALS: BP 133/65
[2023-01-09] MEDS: BLOOD SUGAR DIAGNOSTIC 1 EACH STRIP VI SCH ×4 (07:30→21:36)
[2023-01-09 08:00] VITALS: BP 119/63
[2023-01-09] MEDS: LINAGLIPTIN 5 MG TABLET PO SCH (08:34)
[2023-01-09] MEDS: OLANZAPINE 5 MG TABLET PO SCH ×2 (08:34→16:45)
[2023-01-09] MEDS: ASPIRIN 81 MG TAB.CHEW PO SCH (08:34)
[2023-01-09] MEDS: FERROUS SULFATE (325 MG) 325 MG/TAB TABLET PO SCH (08:34)
[2023-01-09] MEDS: GEMFIBROZIL 600 MG TABLET PO SCH ×2 (08:34→16:46)
[2023-01-09] MEDS: DIVALPROEX SODIUM 500 MG TABLET.DR PO SCH ×2 (08:34→20:43)
[2023-01-09] MEDS: CARVEDILOL 12.5 MG TABLET PO SCH ×2 (08:35→16:46)
[2023-01-09] MEDS: AMLODIPINE BESYLATE 5 MG TABLET PO SCH (08:35)
[2023-01-09] MEDS: LACTULOSE 10 G/15 ML UDC (PYXIS) PO SCH (08:35)
[2023-01-09 10:53] LABS: BASOPHILS % (AUTO) 0.4 % (0.0-2.0); HEMATOCRIT 35 % (39-51); HEMOGLOBIN 9.8 g/dL (13.5-17.5); LYMPHOCYTES # (AUTO) 1.2 K/uL (0.8-4.8); LYMPHOCYTES % (AUTO) 36.5 % (20.0-44.0); MEAN CORPUSCULAR HGB CONC 28 g/dl (31.0-36.0); MEAN CORPUSCULAR VOLUME 114 fL (80-96); MONOCYTES # (AUTO) 0.4 K/uL (0.1-1.30); MONOCYTES % (AUTO) 12.4 % (2.0-12.0); NEUTROPHILS # (AUTO) 1.1 K/uL (1.8-8.9); NEUTROPHILS % (AUTO) 35.7 % (43.0-81.0); PLATELET COUNT (AUTO) 261 K/uL (150-450); RED BLOOD CELL COUNT(AUTO) 3.08 MIL/uL (4.5-6.0); WHITE BLOOD COUNT (AUTO) 3.2 K/uL (4.3-11.0)
[2023-01-09 12:55] LABS: ALBUMIN 2.7 g/dL (3.4-5.0); BILIRUBIN,TOTAL 0.2 mg/dL (0.2-1.0); CALCIUM, SERUM 9.1 mg/dL (8.5-10.1); CREATININE 1.8 mg/dL (0.6-1.3); POTASSIUM 5.2 mmol/L (3.5-5.1); TOTAL PROTEIN, SERUM 6.8 g/dL (6.4-8.2)
[2023-01-09 16:00] VITALS: BP 112/64
--- NOTE | 2023-01-09 20:13 | NUR ---
RN NOTES: PATIENT RESTING IN HIS ROOM, NO APPARENT DISTRESS NOTED, PATIENT EASILY AGITATED/IRRITABLE, PARANOID ,GUARDER NEEDY, NEEDS FREQUENTLY REDIRECTIONS ,DENIES SI/HI/ AT THIS TIME. SAFETY PRECAUTIONS MAINTAINED. WILL CONTINUE TO MONITOR Q15MIN ROUNDS FOR SAFETY AND BEHAVIOR.
[2023-01-09 20:20] VITALS: BP 109/54
[2023-01-09] MEDS ORDERED: SODIUM POLYSTYRENE SULF. PWD 15 GM UDC PO ONE (21:00)
--- NOTE | 2023-01-09 21:36 | NUR ---
RN NOTES: REFUSED ACCU CHECK PT. REFUSED ACCU CHECK , PT. BEHAVIOUR UNCOOPERTIVE , EASILY AGIATED ,PARANOID , ENCOURAGED X3 BUT PT. STRONGLY REFUSED AND PT. STATES LIVE ME ALONE,I AM OK.
[2023-01-10] MEDS: BLOOD SUGAR DIAGNOSTIC 1 EACH STRIP VI SCH ×5 (07:30→21:40)
[2023-01-10 08:00] VITALS: BP 120/67
[2023-01-10] MEDS ORDERED: SODIUM POLYSTYRENE SULF. PWD 15 GM UDC PO ONE ×2 (09:00→17:00)
[2023-01-10] MEDS: OLANZAPINE 5 MG TABLET PO SCH ×2 (09:00→16:17)
[2023-01-10] MEDS: ASPIRIN 81 MG TAB.CHEW PO SCH (09:12)
[2023-01-10] MEDS: GEMFIBROZIL 600 MG TABLET PO SCH ×2 (09:12→16:18)
[2023-01-10] MEDS: DIVALPROEX SODIUM 500 MG TABLET.DR PO SCH ×2 (09:12→21:35)
[2023-01-10] MEDS: LINAGLIPTIN 5 MG TABLET PO SCH (09:12)
[2023-01-10] MEDS: FERROUS SULFATE (325 MG) 325 MG/TAB TABLET PO SCH (09:13)
[2023-01-10] MEDS: AMLODIPINE BESYLATE 5 MG TABLET PO SCH (09:13)
[2023-01-10] MEDS: LACTULOSE 10 G/15 ML UDC (PYXIS) PO SCH (09:13)
[2023-01-10] MEDS: CARVEDILOL 12.5 MG TABLET PO SCH ×2 (09:13→16:18)
[2023-01-10 10:25] LABS: BASOPHILS % (AUTO) 0.5 % (0.0-2.0); EOSINOPHILS % (AUTO) 16.6 % (0.0-6.0); HEMATOCRIT 27 % (39-51); HEMOGLOBIN 8.6 g/dL (13.5-17.5); LYMPHOCYTES # (AUTO) 1.2 K/uL (0.8-4.8); LYMPHOCYTES % (AUTO) 29.5 % (20.0-44.0); MEAN CORPUSCULAR HGB CONC 32 g/dl (31.0-36.0); MEAN CORPUSCULAR VOLUME 99 fL (80-96); MONOCYTES # (AUTO) 0.6 K/uL (0.1-1.30); MONOCYTES % (AUTO) 15.8 % (2.0-12.0); NEUTROPHILS # (AUTO) 1.5 K/uL (1.8-8.9); NEUTROPHILS % (AUTO) 37.6 % (43.0-81.0); PLATELET COUNT (AUTO) 317 K/uL (150-450); RED BLOOD CELL COUNT(AUTO) 2.71 MIL/uL (4.5-6.0); WHITE BLOOD COUNT (AUTO) 4.1 K/uL (4.3-11.0)
[2023-01-10 10:37] LABS: ALBUMIN 2.5 g/dL (3.4-5.0); BILIRUBIN,TOTAL 0.1 mg/dL (0.2-1.0); CALCIUM, SERUM 8.7 mg/dL (8.5-10.1); CREATININE 1.7 mg/dL (0.6-1.3); POTASSIUM 5.3 mmol/L (3.5-5.1); TOTAL PROTEIN, SERUM 6.2 g/dL (6.4-8.2)
[2023-01-10 16:00] VITALS: BP 100/55
[2023-01-10 20:13] VITALS: BP 122/52
[2023-01-10] MEDS: ZOLPIDEM TARTRATE 5 MG TABLET PO PRN (21:36)
--- NOTE | 2023-01-10 21:41 | NUR ---
Pt c/o insomnia. Least restrictive measures ineffective. Ambien 5 mg po prn given as ordered. Will continue to monitor.
--- NOTE | 2023-01-10 22:42 | NUR ---
Post 1 hr Ambien effective. Pt asleep easy to arouse. Bed at low position and bed alarm on. Frequent visual check done for safety. Will continue to monitor.
[2023-01-11] MEDS: BLOOD SUGAR DIAGNOSTIC 1 EACH STRIP VI SCH ×4 (07:30→21:37)
[2023-01-11 08:00] VITALS: BP 129/68
[2023-01-11 08:08] LABS: ALBUMIN 2.5 g/dL (3.4-5.0); BILIRUBIN,TOTAL 0.2 mg/dL (0.2-1.0); CALCIUM, SERUM 9.1 mg/dL (8.5-10.1); CREATININE 1.7 mg/dL (0.6-1.3); POTASSIUM 4.6 mmol/L (3.5-5.1); TOTAL PROTEIN, SERUM 6.4 g/dL (6.4-8.2)
[2023-01-11 08:27] LABS: BASOPHILS % (AUTO) 0.5 % (0.0-2.0); EOSINOPHILS % (AUTO) 15.9 % (0.0-6.0); HEMATOCRIT 27 % (39-51); HEMOGLOBIN 8.9 g/dL (13.5-17.5); LYMPHOCYTES # (AUTO) 1.9 K/uL (0.8-4.8); LYMPHOCYTES % (AUTO) 35.6 % (20.0-44.0); MEAN CORPUSCULAR HGB CONC 33 g/dl (31.0-36.0); MEAN CORPUSCULAR VOLUME 99 fL (80-96); MONOCYTES # (AUTO) 0.8 K/uL (0.1-1.30); MONOCYTES % (AUTO) 13.9 % (2.0-12.0); NEUTROPHILS # (AUTO) 1.8 K/uL (1.8-8.9); NEUTROPHILS % (AUTO) 34.1 % (43.0-81.0); PLATELET COUNT (AUTO) 327 K/uL (150-450); RED BLOOD CELL COUNT(AUTO) 2.76 MIL/uL (4.5-6.0); WHITE BLOOD COUNT (AUTO) 5.4 K/uL (4.3-11.0)
[2023-01-11] MEDS: FERROUS SULFATE (325 MG) 325 MG/TAB TABLET PO SCH (08:45)
[2023-01-11] MEDS: AMLODIPINE BESYLATE 5 MG TABLET PO SCH (08:46)
[2023-01-11] MEDS: DIVALPROEX SODIUM 500 MG TABLET.DR PO SCH ×2 (08:46→21:20)
[2023-01-11] MEDS: ASPIRIN 81 MG TAB.CHEW PO SCH (08:46)
[2023-01-11] MEDS: OLANZAPINE 5 MG TABLET PO SCH ×2 (08:46→17:18)
[2023-01-11] MEDS: CARVEDILOL 12.5 MG TABLET PO SCH ×2 (08:46→17:18)
[2023-01-11] MEDS: LINAGLIPTIN 5 MG TABLET PO SCH (08:46)
[2023-01-11] MEDS: GEMFIBROZIL 600 MG TABLET PO SCH ×2 (08:46→17:18)
[2023-01-11] MEDS: LACTULOSE 10 G/15 ML UDC (PYXIS) PO SCH (08:50)
[2023-01-11 16:00] VITALS: BP 116/60
[2023-01-11 20:11] VITALS: BP 101/51
--- NOTE | 2023-01-11 21:38 | NUR ---
RN NOTE PATIENT REFUSED SCHEDULED ACCU CHECK FOR TONIGHT. DESPITE OF EXPLANATION PROVIDED PT STILL CONTINUED TO REFUSE. PATIENT STATES, "I AM FINE, I AM NOT DIABETIC". WILL CONTINUE TO MONITOR.
[2023-01-12 07:26] LABS: BASOPHILS % (AUTO) 0.4 % (0.0-2.0); EOSINOPHILS % (AUTO) 18.2 % (0.0-6.0); HEMATOCRIT 26 % (39-51); HEMOGLOBIN 8.5 g/dL (13.5-17.5); LYMPHOCYTES # (AUTO) 1.6 K/uL (0.8-4.8); LYMPHOCYTES % (AUTO) 34.8 % (20.0-44.0); MEAN CORPUSCULAR HGB CONC 33 g/dl (31.0-36.0); MEAN CORPUSCULAR VOLUME 99 fL (80-96); MONOCYTES # (AUTO) 0.7 K/uL (0.1-1.30); MONOCYTES % (AUTO) 14.4 % (2.0-12.0); NEUTROPHILS # (AUTO) 1.5 K/uL (1.8-8.9); NEUTROPHILS % (AUTO) 32.2 % (43.0-81.0); PLATELET COUNT (AUTO) 315 K/uL (150-450); RED BLOOD CELL COUNT(AUTO) 2.63 MIL/uL (4.5-6.0); WHITE BLOOD COUNT (AUTO) 4.7 K/uL (4.3-11.0)
[2023-01-12] MEDS: BLOOD SUGAR DIAGNOSTIC 1 EACH STRIP VI SCH ×4 (07:30→21:26)
[2023-01-12 07:40] LABS: ALBUMIN 2.5 g/dL (3.4-5.0); BILIRUBIN,TOTAL 0.1 mg/dL (0.2-1.0); CALCIUM, SERUM 8.9 mg/dL (8.5-10.1); CREATININE 1.6 mg/dL (0.6-1.3); POTASSIUM 4.8 mmol/L (3.5-5.1); TOTAL PROTEIN, SERUM 6.4 g/dL (6.4-8.2)
[2023-01-12 08:00] VITALS: BP 113/61
[2023-01-12] MEDS: DIVALPROEX SODIUM 500 MG TABLET.DR PO SCH (09:21)
[2023-01-12] MEDS: OLANZAPINE 5 MG TABLET PO SCH ×2 (09:21→16:13)
[2023-01-12] MEDS: ASPIRIN 81 MG TAB.CHEW PO SCH (09:22)
[2023-01-12] MEDS: AMLODIPINE BESYLATE 5 MG TABLET PO SCH (09:22)
[2023-01-12] MEDS: GEMFIBROZIL 600 MG TABLET PO SCH ×2 (09:22→16:13)
[2023-01-12] MEDS: CARVEDILOL 12.5 MG TABLET PO SCH ×2 (09:22→16:14)
[2023-01-12] MEDS: FERROUS SULFATE (325 MG) 325 MG/TAB TABLET PO SCH (09:22)
[2023-01-12] MEDS: LACTULOSE 10 G/15 ML UDC (PYXIS) PO SCH (09:22)
[2023-01-12] MEDS: LINAGLIPTIN 5 MG TABLET PO SCH (09:22)
[2023-01-12 16:00] VITALS: BP 107/66
--- NOTE | 2023-01-12 18:49 | NUR ---
SECONDARY SPECIAL EDUCATION TEACHER CLOSING NOTES PATIENT RESTING IN HIS ROOM, PATIENT IS A0X4 AND AMBULATORY WITH NO ASSIST. PATIENT ABLE TO MAKE ALL NEEDS KNOWN. PATIENT REFUSED ALL ACCU CHECKS, PATIENT ADVISED OF PURPOSE OF ACCU CHECKS AND STILL DENIED. PATIENT COMPLIANT WITH ALL OTHER MEDICATION. NO APPARENT DISTRESS NOTED, PATIENT EASILY AGITATED/IRRITABLE, PARANOID. SAFETY PRECAUTIONS MAINTAINED. WILL ENDORSE TO REPLENISHMENT BUYER NURSE.
[2023-01-12 19:47] VITALS: BP 152/78
[2023-01-12] MEDS: DIVALPROEX SODIUM 250 MG TABLET.DR PO SCH (21:21)
--- NOTE | 2023-01-13 06:57 | NUR ---
PATIENT REFUSED AM LABS TODAY X3 DESPITE OF RISKS AND BENEFITS EXPLANATIONS, PT. KEPT REPEATING," I AM GOING HOME TOMORROW, I DON'T NEED ANY TEST."
[2023-01-13] MEDS: BLOOD SUGAR DIAGNOSTIC 1 EACH STRIP VI SCH ×4 (07:30→21:09)
[2023-01-13 08:00] VITALS: BP 114/58
[2023-01-13] MEDS: GEMFIBROZIL 600 MG TABLET PO SCH ×2 (08:39→16:15)
[2023-01-13] MEDS: OLANZAPINE 5 MG TABLET PO SCH ×2 (08:39→16:15)
[2023-01-13] MEDS: FERROUS SULFATE (325 MG) 325 MG/TAB TABLET PO SCH (08:39)
[2023-01-13] MEDS: LINAGLIPTIN 5 MG TABLET PO SCH (08:39)
[2023-01-13] MEDS: DIVALPROEX SODIUM 250 MG TABLET.DR PO SCH ×2 (08:39→21:09)
[2023-01-13] MEDS: CARVEDILOL 12.5 MG TABLET PO SCH ×2 (08:39→16:16)
[2023-01-13] MEDS: LACTULOSE 10 G/15 ML UDC (PYXIS) PO SCH (08:40)
[2023-01-13] MEDS: AMLODIPINE BESYLATE 5 MG TABLET PO SCH (08:40)
[2023-01-13] MEDS: ASPIRIN 81 MG TAB.CHEW PO SCH (08:42)
[2023-01-13 12:07] LABS: BASOPHILS % (AUTO) 0.5 % (0.0-2.0); HEMATOCRIT 29 % (39-51); HEMOGLOBIN 9.2 g/dL (13.5-17.5); LYMPHOCYTES # (AUTO) 1.5 K/uL (0.8-4.8); MEAN CORPUSCULAR HGB CONC 32 g/dl (31.0-36.0); MEAN CORPUSCULAR VOLUME 99 fL (80-96); MONOCYTES # (AUTO) 0.6 K/uL (0.1-1.30); MONOCYTES % (AUTO) 12.9 % (2.0-12.0); NEUTROPHILS # (AUTO) 1.6 K/uL (1.8-8.9); NEUTROPHILS % (AUTO) 35.6 % (43.0-81.0); PLATELET COUNT (AUTO) 317 K/uL (150-450); RED BLOOD CELL COUNT(AUTO) 2.87 MIL/uL (4.5-6.0); WHITE BLOOD COUNT (AUTO) 4.5 K/uL (4.3-11.0)
[2023-01-13 13:07] LABS: ALBUMIN 2.8 g/dL (3.4-5.0); BILIRUBIN,TOTAL 0.1 mg/dL (0.2-1.0); CREATININE 1.7 mg/dL (0.6-1.3); POTASSIUM 5.2 mmol/L (3.5-5.1)
[2023-01-13 16:00] VITALS: BP 118/54
[2023-01-13] MEDS ORDERED: SODIUM POLYSTYRENE SULF. PWD 15 GM UDC PO ONE (17:30)
[2023-01-13 19:55] VITALS: BP 108/57
--- NOTE | 2023-01-13 20:45 | NUR ---
RN NOTES: PATIENT IN BED RESTING COMFORTABLY. ABLE TO MAKE NEEDS KNOWN. NO APPARENT DISTRESS NOTED. PATIENT IS EASILY GETS IRRITABLE, GUARDED. VERBALIZATION OF FEELINGS ENCOURAGED. DENIES SI/HI/AVH AT THIS TIME. SAFETY PRECAUTIONS MAINTAINED. WILL CONTINUE TO MONITOR Q15MIN ROUNDS FOR SAFETY AND BEHAVIOR.
--- NOTE | 2023-01-13 21:10 | NUR ---
RN NOTES: REFUSED ACCU CHECK PT. REFUSED ACCU CHECK , PT. BEHAVIOUR , EASILY AGIATED ,PARANOID , ENCOURAGED X3 BUT PT. STRONGLY REFUSED .
[2023-01-14 07:09] LABS: BASOPHILS % (AUTO) 0.6 % (0.0-2.0); EOSINOPHILS % (AUTO) 18.1 % (0.0-6.0); HEMATOCRIT 27 % (39-51); HEMOGLOBIN 8.7 g/dL (13.5-17.5); LYMPHOCYTES # (AUTO) 1.9 K/uL (0.8-4.8); LYMPHOCYTES % (AUTO) 43.2 % (20.0-44.0); MEAN CORPUSCULAR HGB CONC 32 g/dl (31.0-36.0); MEAN CORPUSCULAR VOLUME 99 fL (80-96); MONOCYTES # (AUTO) 0.5 K/uL (0.1-1.30); MONOCYTES % (AUTO) 11.4 % (2.0-12.0); NEUTROPHILS # (AUTO) 1.2 K/uL (1.8-8.9); NEUTROPHILS % (AUTO) 26.7 % (43.0-81.0); PLATELET COUNT (AUTO) 311 K/uL (150-450); RED BLOOD CELL COUNT(AUTO) 2.72 MIL/uL (4.5-6.0); WHITE BLOOD COUNT (AUTO) 4.5 K/uL (4.3-11.0)
[2023-01-14 07:36] LABS: ALBUMIN 2.6 g/dL (3.4-5.0); BILIRUBIN,TOTAL 0.1 mg/dL (0.2-1.0); CREATININE 1.7 mg/dL (0.6-1.3); POTASSIUM 4.8 mmol/L (3.5-5.1); TOTAL PROTEIN, SERUM 6.5 g/dL (6.4-8.2)
[2023-01-14 08:00] VITALS: BP 118/69
--- NOTE | 2023-01-14 08:07 | NUR ---
SW Discharge Note: Patient will be discharged to [facility] located at [address] [place] [address]; ([phone]). Please arrange transportation at 1PM. ALEXANDRA spoke with [facility] foreman ([phone]) who stated that pt is welcomed back today. Patients LPS conservalbert Pérez ([phone]) will need placement. Patient denies visual/auditory hallucinations. Patient denies suicidal or homicidal ideation. Patient will follow up with (Cable Engineer) Dr. Vogt at [address], [place] [address]; ([phone]) and (Psychiatrist) Dr. Sharif [address] [facility] [address], [place] [address]; ([phone]). Patient presented with euthymic mood and congruent affect.
[2023-01-14] MEDS: LINAGLIPTIN 5 MG TABLET PO SCH (08:17)
[2023-01-14] MEDS: ASPIRIN 81 MG TAB.CHEW PO SCH (08:17)
[2023-01-14] MEDS: BLOOD SUGAR DIAGNOSTIC 1 EACH STRIP VI SCH ×2 (08:17→12:00)
[2023-01-14] MEDS: FERROUS SULFATE (325 MG) 325 MG/TAB TABLET PO SCH (08:17)
[2023-01-14] MEDS: GEMFIBROZIL 600 MG TABLET PO SCH (08:17)
[2023-01-14] MEDS: DIVALPROEX SODIUM 250 MG TABLET.DR PO SCH (08:17)
[2023-01-14 08:18] VITALS: BP 118/69
[2023-01-14] MEDS: CARVEDILOL 12.5 MG TABLET PO SCH (08:18)
[2023-01-14] MEDS: AMLODIPINE BESYLATE 5 MG TABLET PO SCH (08:18)
[2023-01-14] MEDS: OLANZAPINE 5 MG TABLET PO SCH (08:18)
[2023-01-14] MEDS: LACTULOSE 10 G/15 ML UDC (PYXIS) PO SCH (08:19)
--- NOTE | 2023-01-14 09:07 | NUR ---
Dr. Paige gave an order to discharge pt. to [facility] and to follow up with the psych and medical doctors. Psychiatrist ordered to continue same meds including prn. Dr. Garsia made aware of the discharged and reconciled meds to continue in the facility.
--- NOTE | 2023-01-14 13:20 | NUR ---
RN-DISCHARGE NOTES PATIENT HAD A DISCHARGE ORDER FROM ( PSYCHIATRIST), ( ENERGY CONSERVATION REPRESENTATIVE) MEDICALLY CLEARED PATIENT FOR DISCHARGE. PATIENT WAS DISCHARGE TO [facility]. PATIENT DID NOT VERBALIZE SI/HI,DENIES VISUAL/AUDITORY HALLUCINATIONS AT THE TIME OF DISCHARGE. PATIENT LEFT THE UNIT IN STABLE CONDITION A/O X3 AMBULATORY STEADY GAIT. PATIENT WAS DONOR SERVICES SPECIALIST BY AMBULANCE VIA GURNEY WITH TWO STAFF ASSIST. ALL BELONGINGS WAS GIVEN BACK TO THE PATIENT .
== END 2023-01-14 13:22 | DRG 885 ==
LOC: ER 14:25 → GPS 17:40
PROVIDERS: ADMIT Psychiatry & Neurology Psychiatry; ATTEND Internal Medicine
DX: F25.0 Schizoaffective disorder, bipolar type (principal); N17.0 Acute kidney failure with tubular necrosis; E44.0 Moderate protein-calorie malnutrition; R45.851 Suicidal ideations; E11.9 Type 2 diabetes mellitus without complications; Z88.8 Allergy status to other drugs, medicaments and biological substances; Z79.82 Long term (current) use of aspirin; Z79.899 Other long term (current) drug therapy; R62.7 Adult failure to thrive; E88.09 Other disorders of plasma-protein metabolism, not elsewhere classified; F03.90 Unspecified dementia, unspecified severity, without behavioral disturbance, psychotic disturbance, mood disturbance, and anxiety; E78.5 Hyperlipidemia, unspecified; I10 Essential (primary) hypertension; D64.9 Anemia, unspecified; E87.5 Hyperkalemia; Z59.00 Homelessness unspecified
CPT/HCPCS: 36415; 71045-TC; 80048-TC; 80053-TC; 80061-TC; 80076-TC; 80164-TC; 81001; 82570-TC; 82962-TC; 84300-TC; 85025-TC; 87081-TC; C9803; G0480; J1815

== ENCOUNTER 2023-02-09 08:49 | Inpatient (IN) | payer MEDICARE, OTHER ==
[~2023-02-09] VITALS: Ht 185.4 cm; Wt 81.2 kg
[~2023-02-09 08:49] MED LIST changes: -DIVA500T2 PO; -OLAN20TA3 PO
--- NOTE | 2023-02-09 09:01 | NUR ---
DESMOND OCHOA FROM [facility] FOR AGITATION. PT DENIES SI/HI.
[2023-02-09 09:43] LABS: BASOPHILS % (AUTO) 0.4 % (0.0-2.0); EOSINOPHILS % (AUTO) 6.2 % (0.0-6.0); HEMATOCRIT 31 % (39-51); HEMOGLOBIN 9.8 g/dL (13.5-17.5); LYMPHOCYTES # (AUTO) 1.2 K/uL (0.8-4.8); MEAN CORPUSCULAR HGB CONC 32 g/dl (31.0-36.0); MEAN CORPUSCULAR VOLUME 102 fL (80-96); MONOCYTES # (AUTO) 0.6 K/uL (0.1-1.30); MONOCYTES % (AUTO) 12.7 % (2.0-12.0); NEUTROPHILS # (AUTO) 2.4 K/uL (1.8-8.9); NEUTROPHILS % (AUTO) 52.7 % (43.0-81.0); PLATELET COUNT (AUTO) 251 K/uL (150-450); RED BLOOD CELL COUNT(AUTO) 3.01 MIL/uL (4.5-6.0); WHITE BLOOD COUNT (AUTO) 4.5 K/uL (4.3-11.0)
[2023-02-09 09:54] LABS: ALANINE AMINOTRANSFERASE 24 U/L (12-78); ALBUMIN 3.2 g/dL (3.4-5.0); ALCOHOL, BLOOD < 3 mg/dL (0-0); ALKALINE PHOSPHATASE 139 U/L (46-116); ASPARTATE AMINOTRANSFERASE 26 U/L (15-37); BILIRUBIN,DIRECT 0.1 mg/dL (0.0-0.2); BILIRUBIN,TOTAL 0.2 mg/dL (0.2-1.0); CALCIUM, SERUM 9.3 mg/dL (8.5-10.1); CARBON DIOXIDE 19 mmol/L (21-32); CHLORIDE 108 mmol/L (98-107); CREATININE 1.9 mg/dL (0.6-1.3); GLUCOSE 224 mg/dL (74-106); POTASSIUM 4.5 mmol/L (3.5-5.1); SODIUM SERUM 139 mmol/L (136-145); TOTAL PROTEIN, SERUM 7.2 g/dL (6.4-8.2); UREA NITROGEN, BLOOD 49 mg/dL (7-18)
[2023-02-09 09:56] LABS: ACETAMINOPHEN 0 ug/ml (10-30)
--- NOTE | 2023-02-09 10:01 | NUR ---
PAGED LILY REGARDING PT INSURANCE AND IF THE PT IS ABLE TO STAY HERE FOR GPS. AWAITING A CALL BACK FOR UPDATE
[2023-02-09 10:16] LABS: BILIRUBIN,URINE NEGATIVE (NEGATIVE); COLOR,URINE YELLOW (YELLOW); LEUKOCYTE ESTERASE ,URINE NEGATIVE (NEGATIVE); NITRITE, URINE NEGATIVE (NEGATIVE); PROTEIN,URINE NEGATIVE (NEGATIVE); UGLUCOSE NEGATIVE (NEGATIVE); UROBILINOGEN,URINE 0.2 EU/dL (0.2)
--- NOTE | 2023-02-09 10:52 | NUR ---
COVID TEST COLLECTED AND SENT
--- NOTE | 2023-02-09 11:23 | NUR ---
ALISON TOLEDO [phone]
--- NOTE | 2023-02-09 12:26 | NUR ---
SW called Statistical Machine Mechanic, Saurabh to assess the pt. for possible hold. Art stated he will be here soon.
[2023-02-09] MEDS ORDERED: LINA5TAB PO (12:55)
[2023-02-09] MEDS ORDERED: DIVA250T4 PO (12:55)
[2023-02-09] MEDS ORDERED: INSU100V3 SQ (12:55)
[2023-02-09] MEDS ORDERED: MAGN400O6 PO (12:55)
[2023-02-09] MEDS ORDERED: MAG30ORA PO (12:55)
[2023-02-09] MEDS ORDERED: ASPI-1420 PO (12:55)
[2023-02-09] MEDS ORDERED: OLAN5TAB3 PO (12:55)
--- NOTE | 2023-02-09 15:24 | NUR ---
REPORT GIVEN TO CAMILO FOR [facility]
[2023-02-09 15:41] VITALS: BP 162/80
--- NOTE | 2023-02-09 15:41 | NUR ---
PT TRANSFERRED TO [facility] IN STABLE CONDITION
--- NOTE | 2023-02-09 15:41 | NUR ---
LOCK ASSEMBLER NOTE RECEIVED PT FROM E.R. STAFF VIA WHEELCHAIR, PT IS AWAKE, ALERT AND ORIENTED, DENIES PAIN, BREATHING PATTERN NORMAL, ASSISTED TO HIS ROOM, MADE COMFORTABLE, ROOM SET UP ORIENTATION PROVIDED TO PT, VERBALIZED UNDERSTANDING, BELONGINGS ACCOUNTED FOR, GOWNED UP, VITALS TAKEN AND RECORDED, DR. MARTINEZ ON THE FLOOR EXAMINING PT, PT COOPERATIVE AT THIS TIME.
[2023-02-09 16:00] VITALS: BP 162/80
[2023-02-09] MEDS ORDERED: BLOOD SUGAR DIAGNOSTIC 1 EACH STRIP IN ONE (16:30)
[2023-02-09] MEDS ORDERED: INSULIN REGULAR, HUMAN 100 UNIT/ML 3 ML VIAL SQ PRN (16:30)
[2023-02-09] MEDS ORDERED: ACETAMINOPHEN 325 MG TABLET PO PRN ×2 (16:30)
[2023-02-09] MEDS ORDERED: TEMAZEPAM 7.5 MG CAPSULE PO PRN (16:30)
[2023-02-09] MEDS ORDERED: DEXTROSE 50%-WATER 50 ML DISP.SYRIN IV PRN (16:30)
[2023-02-09] MEDS ORDERED: MAG HYDROX/AL HYDROX/SIMETH 30 ML UDC PO PRN ×2 (16:30)
[2023-02-09] MEDS ORDERED: ZOLPIDEM TARTRATE 10 MG TABLET PO PRN (16:30)
[2023-02-09] MEDS ORDERED: DIVALPROEX SODIUM 250 MG TABLET.DR PO SCH (16:30)
[2023-02-09] MEDS ORDERED: MAGNESIUM HYDROXIDE 30 ML UDC PO PRN ×2 (16:30)
[2023-02-09] MEDS: GEMFIBROZIL 600 MG TABLET PO SCH (17:27)
[2023-02-09] MEDS: AMLODIPINE BESYLATE 5 MG TABLET PO SCH (17:27)
[2023-02-09] MEDS: CARVEDILOL 12.5 MG TABLET PO SCH (17:28)
[2023-02-09] MEDS: INSULIN REGULAR, HUMAN 100 UNIT/ML 3 ML VIAL SQ PRN ×2 (17:43→21:47)
[2023-02-09] MEDS: BLOOD SUGAR DIAGNOSTIC 1 EACH STRIP IN SCH ×2 (17:43→21:46)
--- NOTE | 2023-02-09 18:38 | NUR ---
RN NOTES PT IN HIS ROOM, AWAKE, ALERT AND ORIENTED, COMPLIANT WITH MEDS, LIMITED SKIN ASSESSMENT DONE, PT STATES THAT HE HAS NO SKIN ISSUES, WITH GOOD ORAL INTAKE, CALM AND COOPERATIVE SO FAR, WITH EPISODES OF MUMBLING TO SELF, AMBULATES WITH STEADY GAIT.
[2023-02-09 20:34] VITALS: BP 129/56
--- NOTE | 2023-02-09 22:00 | NUR ---
Pts BS= 93, no insulin coverage.
[2023-02-10] MEDS: BLOOD SUGAR DIAGNOSTIC 1 EACH STRIP IN SCH ×4 (07:30→21:19)
[2023-02-10 07:48] LABS: CHOLESTEROL 105 mg/dL (<200); HDL CHOLESTEROL 42 mg/dL (40-60); LDL 42 mg/dL (0-99); TRIGLYCERIDES 107 mg/dL (30-150)
[2023-02-10 07:56] LABS: CALCIUM, SERUM 8.9 mg/dL (8.5-10.1); POTASSIUM 5.3 mmol/L (3.5-5.1)
[2023-02-10 07:57] LABS: ALBUMIN 2.7 g/dL (3.4-5.0); BILIRUBIN,TOTAL 0.1 mg/dL (0.2-1.0); CREATININE 1.7 mg/dL (0.6-1.3); TOTAL PROTEIN, SERUM 6.3 g/dL (6.4-8.2)
[2023-02-10 08:00] VITALS: BP 114/57
[2023-02-10] MEDS: LACTULOSE 10 G/15 ML UDC (PYXIS) PO SCH (08:24)
[2023-02-10] MEDS: GEMFIBROZIL 600 MG TABLET PO SCH ×3 (08:24→17:14)
[2023-02-10] MEDS: AMLODIPINE BESYLATE 5 MG TABLET PO SCH (08:25)
[2023-02-10] MEDS: FERROUS SULFATE (325 MG) 325 MG/TAB TABLET PO SCH (08:25)
[2023-02-10] MEDS: ASPIRIN EC 81 MG TABLET.DR PO SCH (08:25)
[2023-02-10] MEDS: CARVEDILOL 12.5 MG TABLET PO SCH ×3 (08:25→17:14)
[2023-02-10] MEDS: LINAGLIPTIN 5 MG TABLET PO SCH (08:31)
--- NOTE | 2023-02-10 09:19 | NUR ---
ALEXANDRA Initial Discharge Note: Patient currently resides at [facility] located at [address] [place] [address]; ([phone]). Patient is LPS Conserved Elisa ([phone]). ALEXANDRA left Elisa a voicemail to fax detain and treat. ALEXANDRA contacted Inderjit foreman from [place] he stated that he would need to discuss with treatment team if pt is welcomed back. ALEXANDRA will work with the pt and conservator to help coordinate appropriate discharge.
--- NOTE | 2023-02-10 09:20 | NUR ---
ALEXANDRA Clinical Note: Pt placed on a 5150 hold for GD. Pt was aggressive at his facility. Patient currently resides at [facility] located at [address] [place] [address]; ([phone]). Patient is REENA Pérez ([phone]).
--- NOTE | 2023-02-10 09:20 | NUR ---
LPS Conservator: SW contacted pt's conservator. Patient is LPS Conserved Elisa ([phone]). SW left Elisa a voicemail to fax detain and treat. SW left a detailed voicemail.
--- NOTE | 2023-02-10 09:21 | NUR ---
Treatment Plan: Pt refused to sign treatment plan and was labile.
--- NOTE | 2023-02-10 11:23 | NUR ---
Public Guardian Office: ALEXANDRA contacted public guardian office and spoke to officer of the [facility] ([phone]) who faxed pt's detain and treat. ALEXANDRA notified Senia charge nurse.
[2023-02-10] MEDS ORDERED: OLANZAPINE 10 MG VIAL IM STA (12:00)
--- NOTE | 2023-02-10 12:10 | NUR ---
patient agitated ,angry ,yelling and screaming ,throwing tray on the floor . called with new order Zyprexa 10mg IM x1 given Patient voluntary accept inject
--- NOTE | 2023-02-10 12:38 | NUR ---
RN NOTES PATIENT NOTED TO BE VERY AGITATED , SCREAMING AND YELLING AND TRIED TO THROW THE FOOD TRAY IN THE VEL[address] WAY , MD MADE AWARE AND WITH ORDER OF OLANZAPINE 10 MG INJ IM AND ORDER NOTED AND CARRIED OUT , PATIENT MADE AWARE AND VOLUNTARILY AGREED TO HAVE THE MEDICINATION GIVEN IM .
[2023-02-10] MEDS ORDERED: SODIUM POLYSTYRENE SULF. PWD 15 GM UDC PO ONE (13:00)
[2023-02-10] MEDS ORDERED: OLANZAPINE 10 MG VIAL IM PRN (14:00)
[2023-02-10] MEDS: OLANZAPINE ZYDIS 5 MG TAB.RAPDIS PO SCH ×2 (17:00→17:14)
--- NOTE | 2023-02-10 17:00 | NUR ---
RN NOTES PATIENT REFUSED BLOOD SUGAR CHECK AND MEDS DUE AT 1700 , ISOLATIVE DOESN'T TO BE BOTHERED AND SAYING I WANNA GO AMA
--- NOTE | 2023-02-10 18:50 | NUR ---
RN NOTES PATIENT STILL IN BED , DOESN'T WANT TO BE DISTURBED AND WILL ENDORSED TO NEXT SHIFT
[2023-02-10 20:00] VITALS: BP 114/59
[2023-02-10 20:53] VITALS: BP 114/59
[2023-02-10] MEDS: DIVALPROEX SODIUM 500 MG TABLET.DR PO SCH (21:19)
[2023-02-10] MEDS: INSULIN REGULAR, HUMAN 100 UNIT/ML 3 ML VIAL SQ PRN ×2 (21:39→21:45)
--- NOTE | 2023-02-10 21:45 | NUR ---
RN NOTES PT'S BS IS 177; PER SLIDING SCALE, PT SHOULD RECEIVE 3 UNITS OF REGULAR INSULIN. HOWEVER, PT REFUSED THE INSULIN.
[2023-02-11] MEDS: BLOOD SUGAR DIAGNOSTIC 1 EACH STRIP IN SCH ×4 (07:30→21:33)
--- NOTE | 2023-02-11 07:30 | NUR ---
HOSPITAL INTERN NOTES PT IN HIS ROOM, AWAKE, ALERT AND ORIENTED, CURSING AND YELLING AT STAFF. PATIENT STATED " GET THE FUCK OUT OF MY ROOM" PATIENT DENIED 0730 ACCU CHECKS, ANDS KEEPS ASKING TO LEAVE AMA. INFORMED PATIENT HE IS NOT ABLE TO LEAVE AMA, PATIENT WALKED BACK TO HIS BED AND ASKED US TO CLOSE THE DOOR. PATIENT IS AGITATED AND UNCOOPERATIVE.
[2023-02-11] MEDS: FERROUS SULFATE (325 MG) 325 MG/TAB TABLET PO SCH (08:44)
[2023-02-11] MEDS: ASPIRIN EC 81 MG TABLET.DR PO SCH (08:44)
[2023-02-11] MEDS: GEMFIBROZIL 600 MG TABLET PO SCH ×2 (08:45→17:09)
[2023-02-11] MEDS: LACTULOSE 10 G/15 ML UDC (PYXIS) PO SCH (08:45)
[2023-02-11] MEDS: OLANZAPINE ZYDIS 5 MG TAB.RAPDIS PO SCH ×2 (08:45→17:09)
[2023-02-11] MEDS: DIVALPROEX SODIUM 500 MG TABLET.DR PO SCH ×2 (08:45→21:06)
[2023-02-11] MEDS: CARVEDILOL 12.5 MG TABLET PO SCH ×2 (08:45→17:00)
[2023-02-11] MEDS: LINAGLIPTIN 5 MG TABLET PO SCH (08:45)
[2023-02-11] MEDS: AMLODIPINE BESYLATE 5 MG TABLET PO SCH (08:46)
[2023-02-11] MEDS ORDERED: OLANZAPINE 10 MG VIAL IM ONE (10:00)
--- NOTE | 2023-02-11 10:00 | NUR ---
Pt. is highly agitated, aggressive, screaming and yelling to the staff and wanted to be discharged. Dr. Paige in the unit and ordered Zyprexa 10 mg IM. Addendum: 02/11/23 at 1015 by JOE LUNA RN Pt. was slamming the door hard. Addendum: 02/11/23 at 1047 by JOE LUNA RN Called the conservator Elisa Hampton at [phone] and left a message.
[2023-02-11] MEDS ORDERED: SODIUM POLYSTYRENE SULFONATE 15 G/60 ML BOTTLE PO ONE (12:30)
[2023-02-11] MEDS ORDERED: SODIUM POLYSTYRENE SULF. PWD 15 GM UDC PO ONE (16:00)
[2023-02-11 20:40] VITALS: BP 153/69
--- NOTE | 2023-02-11 21:33 | NUR ---
RN NOTES PATIENT REFUSED BLOOD SUGAR CHECK.EXPLAINED BENEFITS X3.
[2023-02-12] MEDS: BLOOD SUGAR DIAGNOSTIC 1 EACH STRIP IN SCH ×4 (07:30→21:43)
--- NOTE | 2023-02-12 07:30 | NUR ---
RN- NOTES PATIENT REFUSED ALL VITAL SIGN CHECKS. EDUCATED AND OFFERED X3.
--- NOTE | 2023-02-12 08:00 | NUR ---
RN- NOTES PATIENT REFUSED BREAKFAST, ENCOURAGED AND OFFERED X3. PATIENT YELLED AT STAFF, "I DON'T WANT ANY MORE FUCKING FOOD, I WANT TO BE CREMATED AND ."
[2023-02-12] MEDS: ASPIRIN EC 81 MG TABLET.DR PO SCH (08:11)
[2023-02-12] MEDS: LACTULOSE 10 G/15 ML UDC (PYXIS) PO SCH (08:11)
[2023-02-12] MEDS: CARVEDILOL 12.5 MG TABLET PO SCH ×2 (08:11→16:36)
[2023-02-12] MEDS: OLANZAPINE ZYDIS 5 MG TAB.RAPDIS PO SCH ×4 (08:12→16:33)
[2023-02-12] MEDS: GEMFIBROZIL 600 MG TABLET PO SCH ×2 (08:12→16:36)
[2023-02-12] MEDS: AMLODIPINE BESYLATE 5 MG TABLET PO SCH (08:12)
[2023-02-12] MEDS: DIVALPROEX SODIUM 500 MG TABLET.DR PO SCH ×2 (08:12→21:04)
[2023-02-12] MEDS: LINAGLIPTIN 5 MG TABLET PO SCH (08:12)
[2023-02-12] MEDS: FERROUS SULFATE (325 MG) 325 MG/TAB TABLET PO SCH (08:12)
--- NOTE | 2023-02-12 08:13 | NUR ---
RN- NOTES PATIENT REFUSED ACCU CHECK AND ALL 0900 MEDICATIONS. EDUCATION AND ENCOURAGEMENT GIVEN X3. PATIENT STATED, "I WANT TO BE PUT TO AND I WANT TO BE CREMATED. FUCK THIS PLACE AND FUCK YOU."
--- NOTE | 2023-02-12 09:12 | NUR ---
RN- NOTES ZYPREXA 5MG IM ADMINISTERED DUE TO PATIENT REFUSAL OF ALL MEDICATIONS PER CONSERVATOR AND MD ORDERS.
[2023-02-12] MEDS ORDERED: OLANZAPINE 10 MG VIAL IM PRN (10:30)
--- NOTE | 2023-02-12 11:13 | NUR ---
RN- NOTES ZYPREXA HELD DUE TO ALREADY ADMINISTERED ZYPREXA INJECTION AT 0900.
--- NOTE | 2023-02-12 12:44 | NUR ---
RN- NOTES ZYPREXA 5MG IM ADMINISTERED DUE TO PATIENT REFUSAL OF ZYPREXA 5MG P.O PER CONSERVATOR AND MD ORDERS.
--- NOTE | 2023-02-12 16:37 | NUR ---
RN- NOTES PATIENT REFUSED ALL MEDICATIONS EXCEPT FOR ZYPREXA 5MG P.O. PATIENT STATED, "I DON'T NEED NO FUCKING SHOT. I'LL ONLY TAKE ONE MEDICATION, JUST THE ONE. HURRY THE FUCK UP SO YOU CAN GET THE FUCK OUT OF MY ROOM."
--- NOTE | 2023-02-12 18:22 | NUR ---
RN- CLOSING NOTES PATIENT IS ISOLATIVE IN THE ROOM, BREATHING EVEN AND NON LABORED WITH NO S/S OF DISTRESS. PATIENT IS HIGHLY AGGRESSIVE, HYPERVERBAL, EASILY ANGERED, YELLING PROFANITIES TO HIMSELF, STAFF, AND OTHER RESIDENTS, SLAMMING ROOM DOOR, AND HITTING HIS ROOM DOOR WITH HIS HAND REPEATEDLY. PATIENT REFUSED ALL P.O MEDICATIONS EXCEPT FOR 1700 ZYPREXA, ZYPREXA IM ADMINISTERED FOR OTHER P.O REFUSALS. PATIENT STATES, "I WANT TO BE CREMATED, OR GIVEN A HOT GUN SO THAT I CAN JUST END IT." WHEN ASKED ABOUT SUICIDAL IDEATION. PATIENT IS AMBULATORY WITH NO ASSISTANCE. WILL CONTINUE TO MONITOR Q 15 MINUTES FOR SAFETY AND BEHAVIOR.
--- NOTE | 2023-02-12 21:44 | NUR ---
RN NOTES; PATIENT REFUSED ACCU CHECK @2200,EXPLAINED BENEFITS X3 .STILL REFUSED.
[2023-02-13 06:51] LABS: CALCIUM, SERUM 8.8 mg/dL (8.5-10.1); CREATININE 1.7 mg/dL (0.6-1.3); POTASSIUM 5.3 mmol/L (3.5-5.1)
[2023-02-13] MEDS: BLOOD SUGAR DIAGNOSTIC 1 EACH STRIP IN SCH ×4 (07:30→21:34)
[2023-02-13] MEDS: LINAGLIPTIN 5 MG TABLET PO SCH (08:30)
[2023-02-13] MEDS: OLANZAPINE ZYDIS 5 MG TAB.RAPDIS PO SCH ×3 (08:31→17:04)
[2023-02-13] MEDS: DIVALPROEX SODIUM 500 MG TABLET.DR PO SCH ×2 (08:31→21:10)
[2023-02-13] MEDS: LACTULOSE 10 G/15 ML UDC (PYXIS) PO SCH (08:34)
[2023-02-13] MEDS: CARVEDILOL 12.5 MG TABLET PO SCH ×2 (08:34→17:00)
[2023-02-13] MEDS: FERROUS SULFATE (325 MG) 325 MG/TAB TABLET PO SCH (08:35)
[2023-02-13] MEDS: GEMFIBROZIL 600 MG TABLET PO SCH ×2 (08:35→17:00)
[2023-02-13] MEDS: ASPIRIN EC 81 MG TABLET.DR PO SCH (08:35)
[2023-02-13] MEDS: AMLODIPINE BESYLATE 5 MG TABLET PO SCH (08:35)
[2023-02-13] MEDS: LORAZEPAM 0.5 MG TABLET PO PRN (10:35)
--- NOTE | 2023-02-13 12:22 | NUR ---
GPS/RN PT REFUSED 0800 AND 1200 BS CHECK OFFERED X3
[2023-02-13 16:00] VITALS: BP 116/74
[2023-02-13] MEDS ORDERED: SODIUM POLYSTYRENE SULF. PWD 15 GM UDC PO ONE (16:30)
--- NOTE | 2023-02-13 19:30 | NUR ---
RN notes Received Pt from morning nurse. Pt is resting in bed comfortably. Pt is alert and orientedX2, calm, disorganized, anxious and able to make needs known. VS is stable. On room air. No SOB. No S/S of distress noted. Pt denies SI/HI at this time. Reality orientation provided. Snacks is offered. Safety precautions is maintained. Will continue to monitor Q 15 mins checks for safety and behavior.
[2023-02-13 20:00] VITALS: BP 119/52
[2023-02-13] MEDS: INSULIN REGULAR, HUMAN 100 UNIT/ML 3 ML VIAL SQ PRN (21:35)
--- NOTE | 2023-02-13 21:35 | NUR ---
RN notes Pt refuses blood sugar checks at 2200. Pt agitated easily. Pt stated " I will take the med! No blood sugar check!!" I am fine!" I just want to sleep!!" with a loud voice. Explained risks and benefits. Pt keep refusing. Will continue to monitor.
[2023-02-14] MEDS: BLOOD SUGAR DIAGNOSTIC 1 EACH STRIP IN SCH ×4 (07:30→22:00)
[2023-02-14 08:00] VITALS: BP 117/71
[2023-02-14] MEDS: LINAGLIPTIN 5 MG TABLET PO SCH (08:45)
[2023-02-14] MEDS: OLANZAPINE ZYDIS 5 MG TAB.RAPDIS PO SCH ×3 (08:45→16:51)
[2023-02-14] MEDS: ASPIRIN EC 81 MG TABLET.DR PO SCH (08:45)
[2023-02-14] MEDS: GEMFIBROZIL 600 MG TABLET PO SCH ×2 (08:45→16:51)
[2023-02-14] MEDS: DIVALPROEX SODIUM 500 MG TABLET.DR PO SCH ×2 (08:45→21:13)
[2023-02-14] MEDS: LACTULOSE 10 G/15 ML UDC (PYXIS) PO SCH (08:45)
[2023-02-14] MEDS: AMLODIPINE BESYLATE 5 MG TABLET PO SCH (08:46)
[2023-02-14] MEDS: FERROUS SULFATE (325 MG) 325 MG/TAB TABLET PO SCH (08:46)
[2023-02-14] MEDS: CARVEDILOL 12.5 MG TABLET PO SCH ×2 (08:46→16:51)
[2023-02-14 16:00] VITALS: BP 121/51
[2023-02-14 21:37] VITALS: BP 101/59
--- NOTE | 2023-02-14 22:00 | NUR ---
fish and wildlife technician notes pt refused to check his blood sugar now and stated do it rod . No signs of hypo/hyper glycemia noted. will continue monitoring .
--- NOTE | 2023-02-14 22:00 | NUR ---
child nurse notes complaint with his medication but pt refused for skin photo.
--- NOTE | 2023-02-15 06:09 | NUR ---
winterizer notes we moved pt in observation room for now because he can't tolerate patient in bed 2 and for safety of each other as well. will continue monitoring.
[2023-02-15 07:22] LABS: POTASSIUM 5.7 mmol/L (3.5-5.1)
[2023-02-15] MEDS: BLOOD SUGAR DIAGNOSTIC 1 EACH STRIP IN SCH ×5 (07:30→22:40)
[2023-02-15 08:00] VITALS: BP 144/69
[2023-02-15] MEDS: FERROUS SULFATE (325 MG) 325 MG/TAB TABLET PO SCH (09:26)
[2023-02-15] MEDS: CARVEDILOL 12.5 MG TABLET PO SCH ×2 (09:26→17:16)
[2023-02-15] MEDS: LACTULOSE 10 G/15 ML UDC (PYXIS) PO SCH (09:26)
[2023-02-15] MEDS: AMLODIPINE BESYLATE 5 MG TABLET PO SCH (09:26)
[2023-02-15] MEDS: DIVALPROEX SODIUM 500 MG TABLET.DR PO SCH ×2 (09:27→20:16)
[2023-02-15] MEDS: OLANZAPINE ZYDIS 5 MG TAB.RAPDIS PO SCH ×3 (09:27→17:15)
[2023-02-15] MEDS: LINAGLIPTIN 5 MG TABLET PO SCH (09:27)
[2023-02-15] MEDS: ASPIRIN EC 81 MG TABLET.DR PO SCH (09:28)
[2023-02-15] MEDS: GEMFIBROZIL 600 MG TABLET PO SCH ×2 (09:28→17:15)
--- NOTE | 2023-02-15 09:55 | NUR ---
LPS Conservator: SW contacted pt's LPS conservator Elisa ([phone]) and she stated that she would want pt back to [facility] when stable.
[2023-02-15] MEDS ORDERED: SODIUM POLYSTYRENE SULFONATE 15 G/60 ML BOTTLE PO ONE (12:30)
[2023-02-15] MEDS ORDERED: SODIUM POLYSTYRENE SULF. PWD 15 GM UDC PO ONE (12:30)
[2023-02-15 16:00] VITALS: BP 136/81
--- NOTE | 2023-02-15 19:30 | NUR ---
RN OPENING NOTES RECEIVED PATIENT AWAKE IN BED. PATIENT IS A/O TIMES 3. ABLE TO MAKE NEEDS KNOWN. NO PAIN NOTED. NO SOB NOTED. NO DISTRESS NOTED. ALL SAFETY MEASURES IN PLACE. BED LOCKED IN THE LOWEST POSITION. TABLE IN EASY REACH. SIDE RAILS UP TIMES 2. WILL CONTINUE TO MONITOR CLOSELY.
[2023-02-15 19:58] VITALS: BP 134/63
--- NOTE | 2023-02-15 22:00 | NUR ---
RN NOTES BLOOD SUGAR CHECKED , RESULTED 127, NO COVERAGE OF INSULIN NOTED.
--- NOTE | 2023-02-16 06:07 | NUR ---
RN NOTES BLOOD SUGAR CHECKED RESULTED 91. NO INSULIN COVERAGE.
--- NOTE | 2023-02-16 06:35 | NUR ---
RN CLOSING NOTES PATIENT AWAKE IN BED. PATIENT IS A/O TIMES 3. BLOOD SUGAR CHECKED NOTED 91. PATIENT ASKING FOR SNACKS. ABLE TO MAKE NEEDS KNOWN. NO PAIN NOTED. NO SOB NOTED. NO DISTRESS NOTED. COOPERATIVE DURING SHIFT. ALL DUE MEDS GIVEN ORDERED. ALL SAFETY MEASURES IN PLACE. BED LOCKED IN THE LOWEST POSITION. TABLE IN EASY REACH. SIDE RAILS UP TIMES 2. WILL ENDORSE FOR [place].
[2023-02-16] MEDS: BLOOD SUGAR DIAGNOSTIC 1 EACH STRIP IN SCH ×4 (06:43→21:38)
[2023-02-16 08:00] VITALS: BP 122/61
[2023-02-16] MEDS: OLANZAPINE ZYDIS 5 MG TAB.RAPDIS PO SCH ×2 (08:45→16:43)
[2023-02-16] MEDS: DIVALPROEX SODIUM 500 MG TABLET.DR PO SCH ×2 (08:45→20:43)
[2023-02-16] MEDS: ASPIRIN EC 81 MG TABLET.DR PO SCH (08:45)
[2023-02-16] MEDS: FERROUS SULFATE (325 MG) 325 MG/TAB TABLET PO SCH (08:45)
[2023-02-16] MEDS: LACTULOSE 10 G/15 ML UDC (PYXIS) PO SCH (08:45)
[2023-02-16] MEDS: GEMFIBROZIL 600 MG TABLET PO SCH ×2 (08:45→16:43)
[2023-02-16] MEDS: CARVEDILOL 12.5 MG TABLET PO SCH ×2 (08:46→16:44)
[2023-02-16] MEDS: AMLODIPINE BESYLATE 5 MG TABLET PO SCH (08:46)
[2023-02-16] MEDS: LINAGLIPTIN 5 MG TABLET PO SCH (09:43)
[2023-02-16] MEDS ORDERED: OLANZAPINE 10 MG VIAL IM PRN (10:00)
[2023-02-16] MEDS: INSULIN REGULAR, HUMAN 100 UNIT/ML 3 ML VIAL SQ PRN (11:48)
[2023-02-16 16:00] VITALS: BP 124/66
--- NOTE | 2023-02-16 16:45 | NUR ---
RN NOTES PATIENT REFUSED BLOOD SUGAR CHECK FOR 2797
[2023-02-16 20:06] VITALS: BP 106/41
--- NOTE | 2023-02-16 22:00 | NUR ---
Nurses Notes: Pt refused BS ck @ 2200, explain to patient the important of checking BS parameter but patient still refused.
[2023-02-17] MEDS: BLOOD SUGAR DIAGNOSTIC 1 EACH STRIP IN SCH ×5 (07:30→21:08)
[2023-02-17 08:00] VITALS: BP 110/58
[2023-02-17] MEDS: FERROUS SULFATE (325 MG) 325 MG/TAB TABLET PO SCH (08:41)
[2023-02-17] MEDS: LACTULOSE 10 G/15 ML UDC (PYXIS) PO SCH (08:41)
[2023-02-17] MEDS: OLANZAPINE ZYDIS 5 MG TAB.RAPDIS PO SCH ×2 (08:41→17:11)
[2023-02-17] MEDS: GEMFIBROZIL 600 MG TABLET PO SCH ×2 (08:42→17:11)
[2023-02-17] MEDS: ASPIRIN EC 81 MG TABLET.DR PO SCH (08:42)
[2023-02-17] MEDS: LINAGLIPTIN 5 MG TABLET PO SCH (08:42)
[2023-02-17] MEDS: DIVALPROEX SODIUM 500 MG TABLET.DR PO SCH (08:42)
[2023-02-17] MEDS: CARVEDILOL 12.5 MG TABLET PO SCH ×2 (08:43→17:11)
[2023-02-17] MEDS: AMLODIPINE BESYLATE 5 MG TABLET PO SCH (08:44)
[2023-02-17 16:00] VITALS: BP 148/71
[2023-02-17] MEDS: SODIUM POLYSTYRENE SULFONATE 15 G/60 ML BOTTLE PO PRN (17:55)
--- NOTE | 2023-02-17 19:05 | NUR ---
RN notes Received Pt from morning nurse. Pt is sitting in bed comfortably having conversation with roommates friendly. Pt is alert and orientedX2-3, calm, disorganized and non compliant with care. Reality orientation provided. VS is stable. on room air. No SOB. No S/s of distress noted. Pt informed "I don't want blood sugar checks tonight despites explanation risks and benefits. Snacks is offered. safety precautions is maintained. Will continue to monitor Q 15 mins checks for safety and behavior.
[2023-02-17 19:57] VITALS: BP 122/69
[2023-02-17] MEDS: DIVALPROEX SODIUM 125 MG CAP.SPRINK PO SCH (20:12)
[2023-02-17] MEDS: INSULIN REGULAR, HUMAN 100 UNIT/ML 3 ML VIAL SQ PRN (21:09)
--- NOTE | 2023-02-17 21:09 | NUR ---
RN notes Pt refuses blood sugar checks. Explained risks and benefits. pt keep refusing. Will continue to monitor.
[2023-02-18] MEDS: BLOOD SUGAR DIAGNOSTIC 1 EACH STRIP IN SCH ×4 (07:30→21:45)
[2023-02-18 08:00] VITALS: BP 123/53
[2023-02-18] MEDS: LACTULOSE 10 G/15 ML UDC (PYXIS) PO SCH (08:06)
[2023-02-18] MEDS: OLANZAPINE ZYDIS 5 MG TAB.RAPDIS PO SCH ×2 (08:06→16:09)
[2023-02-18] MEDS: GEMFIBROZIL 600 MG TABLET PO SCH ×2 (08:06→16:10)
[2023-02-18] MEDS: DIVALPROEX SODIUM 125 MG CAP.SPRINK PO SCH ×2 (08:06→21:52)
[2023-02-18] MEDS: LINAGLIPTIN 5 MG TABLET PO SCH (08:07)
[2023-02-18] MEDS: FERROUS SULFATE (325 MG) 325 MG/TAB TABLET PO SCH (08:07)
[2023-02-18] MEDS: AMLODIPINE BESYLATE 5 MG TABLET PO SCH (08:07)
[2023-02-18] MEDS: ASPIRIN EC 81 MG TABLET.DR PO SCH (08:07)
[2023-02-18] MEDS: CARVEDILOL 12.5 MG TABLET PO SCH ×2 (08:07→16:10)
[2023-02-18 09:19] LABS: CALCIUM, SERUM 8.8 mg/dL (8.5-10.1); CREATININE 1.8 mg/dL (0.6-1.3); POTASSIUM 5.8 mmol/L (3.5-5.1)
[2023-02-18] MEDS: SODIUM POLYSTYRENE SULFONATE 15 G/60 ML BOTTLE PO PRN (10:31)
--- NOTE | 2023-02-18 10:34 | NUR ---
CUSTOM FURRIER NOTE PATIENT REFUSED KAYEXELATE, ATTEMPTED 3 DIFFERENT TIMES AND PATIENT STILL REFUSED. PATIENT WANTS TO BE LEFT ALONE FOR NOW. CHARGE NURSE AND NOTIFIED
--- NOTE | 2023-02-19 05:25 | NUR ---
CLOSING NOTES; ALERT AND ORIENTATED X3 ASKING FOR FOOD FREQ HE AMBULATES IN THE ROOM STAYS IN HIS ROOM HE HAS BODY ORDER AND HIS ROOM FOUL SMELLING OFFERED TOOTH PASTE TO BURSH HIS TEETH REFUSED WENT TO BED 10PM AND SLEPT THRU THE NIGHT BEHAVIOR COOPERATIVE AND APPRECIATIVE
[2023-02-19] MEDS: BLOOD SUGAR DIAGNOSTIC 1 EACH STRIP IN SCH ×4 (07:30→21:36)
--- NOTE | 2023-02-19 07:35 | NUR ---
RN notes Received Pt awake in bed, alert and orientedX2-3, calm, disorganized and non compliant with care. Reality orientation provided. VS is stable. on room air. No SOB. No S/s of distress noted. Pt informed "I don't want blood sugar checks. safety precautions is maintained. Will continue to monitor Q 15 mins checks for safety and behavior.
--- NOTE | 2023-02-19 07:58 | NUR ---
RN notes Pt refuses blood sugar checks. Explained risks and benefits. pt keep refusing. Will continue to monitor.
[2023-02-19 08:00] VITALS: BP 126/76
[2023-02-19] MEDS: DIVALPROEX SODIUM 125 MG CAP.SPRINK PO SCH ×2 (08:26→21:36)
[2023-02-19] MEDS: AMLODIPINE BESYLATE 5 MG TABLET PO SCH (08:26)
[2023-02-19] MEDS: CARVEDILOL 12.5 MG TABLET PO SCH ×2 (08:27→16:29)
[2023-02-19] MEDS: ASPIRIN EC 81 MG TABLET.DR PO SCH (08:27)
[2023-02-19] MEDS: OLANZAPINE ZYDIS 5 MG TAB.RAPDIS PO SCH ×2 (08:27→16:29)
[2023-02-19] MEDS: GEMFIBROZIL 600 MG TABLET PO SCH ×2 (08:27→16:29)
[2023-02-19] MEDS: LINAGLIPTIN 5 MG TABLET PO SCH (08:28)
[2023-02-19] MEDS: LACTULOSE 10 G/15 ML UDC (PYXIS) PO SCH (08:31)
[2023-02-19] MEDS: FERROUS SULFATE (325 MG) 325 MG/TAB TABLET PO SCH (08:32)
[2023-02-19] MEDS ORDERED: SODIUM POLYSTYRENE SULF. PWD 15 GM UDC PO ONE (10:00)
--- NOTE | 2023-02-19 11:30 | NUR ---
rn notes Pt refuses blood sugar checks. Explained risks and benefits. pt keep refusing. Will continue to monitor.
[2023-02-19 16:00] VITALS: BP 119/63
--- NOTE | 2023-02-19 17:18 | NUR ---
RN notes Pt refuses blood sugar checks. Explained risks and benefits. Approached several times, pt still keep refusing. Will continue to monitor.
--- NOTE | 2023-02-19 18:36 | NUR ---
RN NOTES Pt is awake and laying in bed comfortably. Stays in room most of the time but was in the dining room in the morning, encouraged to join group session however patient refused. Able to make needs known. Pt is alert and orientedX3, Compliant with medications except insulin administration. Reality orientation provided. on room air. No SOB. No s/s of distress noted. Snacks is offered in between meals, snacks is given in between meals, care rendered. Kept patient tidy and comfortable. Safety precautions is maintained. Will endorsed to next nurse.
--- NOTE | 2023-02-19 19:32 | NUR ---
GPS RN NOTE, RECEIVED PATIENT AWAKE AND IN BED, NO S/S OR COMPLAINTS OF PAIN AT THIS TIME. PATIENT IS DISPLAYING NO S/S OF APPARENT DISTRESS AT THIS TIME. PATIENT BREATHING IS UNLABORED WITH EQUAL RISE AND FALL OF THE CHEST. PATIENT IS ALERT AND ORIENTED X 2 ON ROOM AIR WITH A SPO2 99%. PATIENT IS COMPLIANT WITH MEDICATION, ANXIOUS, RESTLESS, PARANOID AT TIMES, VERBALLY ABUSIVE, AND COOPERATIVE. PATIENT DENIES SUICIDAL AND HOMICIDAL IDEATIONS AT THIS TIME. PATIENT ASSISTED WITH TURNING AND REPOSITIONING Q2HR AND PRN FOR COMFORT AND CIRCULATION. PATIENT HAS NO NEEDS AT THIS TIME. PATIENT EDUCATED ON THE USE OF THE CALL MAE. PATIENT BED SIDE RAILS UP X 2 FOR SAFETY. PATIENT BED IS LOCKED AND LOW. WILL CONTINUE TO MONITOR THIS PATIENT Q15 MINUTES WITH THE HELP OF STAFF TO MAINTAIN SAFETY.
--- NOTE | 2023-02-19 21:36 | NUR ---
GPS RN NOTE, PATIENT REFUSED TO HAVE ACCU CHECK PERFORMED. OFFERED THREE TIMES AND STILL PATIENT REFUSED STATING, " NO, I DON'T NEED THAT SHIT ". EDUCATED PATIENT ON THE RISKS AND BENEFITS OF HYPO AND HYPER GLYCEMIA. WILL CONTINUE TO MONITOR THIS PATIENT WITH THE HELP OF STAFF.
[2023-02-20] MEDS: BLOOD SUGAR DIAGNOSTIC 1 EACH STRIP IN SCH ×4 (07:30→21:53)
[2023-02-20 08:00] VITALS: BP 121/76
[2023-02-20 08:01] LABS: POTASSIUM 5.1 mmol/L (3.5-5.1)
[2023-02-20] MEDS: GEMFIBROZIL 600 MG TABLET PO SCH ×2 (08:32→16:17)
[2023-02-20] MEDS: LACTULOSE 10 G/15 ML UDC (PYXIS) PO SCH (08:32)
[2023-02-20] MEDS: LINAGLIPTIN 5 MG TABLET PO SCH (08:33)
[2023-02-20] MEDS: DIVALPROEX SODIUM 125 MG CAP.SPRINK PO SCH ×2 (08:33→20:12)
[2023-02-20] MEDS: CARVEDILOL 12.5 MG TABLET PO SCH ×2 (08:33→16:17)
[2023-02-20] MEDS: OLANZAPINE ZYDIS 5 MG TAB.RAPDIS PO SCH ×2 (08:33→16:17)
[2023-02-20] MEDS: ASPIRIN EC 81 MG TABLET.DR PO SCH (08:34)
[2023-02-20] MEDS: AMLODIPINE BESYLATE 5 MG TABLET PO SCH (08:34)
[2023-02-20] MEDS: FERROUS SULFATE (325 MG) 325 MG/TAB TABLET PO SCH (08:34)
--- NOTE | 2023-02-20 09:30 | NUR ---
RN Notes: Received pt. awake in his room, guarded upon approached and suspicious. Pt. ate 100% for breakfast and compliant on meds. Pt. stayed in his room most of the time and easily got irritated. Encouraged to verbalize feelings and motivated to attend group activity. Needs attended and will continue to monitor for safety.
[2023-02-20 16:00] VITALS: BP 119/71
[2023-02-20 20:21] VITALS: BP 132/67
[2023-02-21] MEDS: BLOOD SUGAR DIAGNOSTIC 1 EACH STRIP IN SCH ×4 (07:30→21:16)
[2023-02-21 08:00] VITALS: BP 117/68
[2023-02-21] MEDS: LACTULOSE 10 G/15 ML UDC (PYXIS) PO SCH (09:06)
[2023-02-21] MEDS: LINAGLIPTIN 5 MG TABLET PO SCH (09:07)
[2023-02-21] MEDS: ASPIRIN EC 81 MG TABLET.DR PO SCH (09:07)
[2023-02-21] MEDS: FERROUS SULFATE (325 MG) 325 MG/TAB TABLET PO SCH (09:07)
[2023-02-21] MEDS: AMLODIPINE BESYLATE 5 MG TABLET PO SCH (09:07)
[2023-02-21] MEDS: CARVEDILOL 12.5 MG TABLET PO SCH ×2 (09:09→17:00)
[2023-02-21] MEDS: OLANZAPINE ZYDIS 5 MG TAB.RAPDIS PO SCH ×2 (09:10→17:32)
[2023-02-21] MEDS: GEMFIBROZIL 600 MG TABLET PO SCH ×2 (09:10→17:31)
[2023-02-21] MEDS: DIVALPROEX SODIUM 125 MG CAP.SPRINK PO SCH ×2 (09:10→20:33)
[2023-02-21 11:59] LABS: CALCIUM, SERUM 9.2 mg/dL (8.5-10.1); CREATININE 1.8 mg/dL (0.6-1.3); POTASSIUM 5.9 mmol/L (3.5-5.1)
[2023-02-21] MEDS ORDERED: SODIUM POLYSTYRENE SULF. PWD 15 GM UDC PO SCH (13:00)
[2023-02-21 13:37] LABS: POTASSIUM 5.9 mmol/L (3.5-5.1)
[2023-02-21] MEDS: SODIUM POLYSTYRENE SULFONATE 15 G/60 ML BOTTLE PO SCH (13:52)
[2023-02-21 16:00] VITALS: BP 107/61
--- NOTE | 2023-02-21 20:00 | NUR ---
RN NOTE: PATIENT REFUSED WEEKLY SKIN ASSESSMENT. EXPLAINED RISKS/BENEFITS BUT PATIENT CONTINUED TO REFUSE.
[2023-02-21 20:11] VITALS: BP 139/66
--- NOTE | 2023-02-21 21:27 | NUR ---
RN NOTE: PATIENT REFUSED SCHEDULED ACCU CHECK. DESPITE OF EDUCATION PROVIDED. PATIENT CONTINUED TO REFUSE. OFFERED X3. NO S/SX OF HYPO/HYPERGLYCEMIA NOTED. WILL CONTINUE TO MONITOR THROUGHOUT THE SHIFT.
[2023-02-22 07:15] LABS: CALCIUM, SERUM 8.7 mg/dL (8.5-10.1); CREATININE 1.6 mg/dL (0.6-1.3); POTASSIUM 4.9 mmol/L (3.5-5.1)
[2023-02-22] MEDS: BLOOD SUGAR DIAGNOSTIC 1 EACH STRIP IN SCH ×4 (07:30→22:00)
[2023-02-22 08:00] VITALS: BP 127/61
[2023-02-22] MEDS: GEMFIBROZIL 600 MG TABLET PO SCH ×2 (08:29→17:09)
[2023-02-22] MEDS: DIVALPROEX SODIUM 125 MG CAP.SPRINK PO SCH ×2 (08:29→20:21)
[2023-02-22] MEDS: FERROUS SULFATE (325 MG) 325 MG/TAB TABLET PO SCH (08:30)
[2023-02-22] MEDS: LINAGLIPTIN 5 MG TABLET PO SCH (08:30)
[2023-02-22] MEDS: OLANZAPINE ZYDIS 5 MG TAB.RAPDIS PO SCH ×2 (08:30→17:08)
[2023-02-22] MEDS: LACTULOSE 10 G/15 ML UDC (PYXIS) PO SCH (08:30)
[2023-02-22] MEDS: CARVEDILOL 12.5 MG TABLET PO SCH ×2 (08:30→17:09)
[2023-02-22] MEDS: ASPIRIN EC 81 MG TABLET.DR PO SCH (08:30)
[2023-02-22] MEDS: AMLODIPINE BESYLATE 5 MG TABLET PO SCH (08:31)
[2023-02-22] MEDS: SODIUM POLYSTYRENE SULFONATE 15 G/60 ML BOTTLE PO SCH (09:00)
[2023-02-22 16:00] VITALS: BP 151/78
[2023-02-22] MEDS: LORAZEPAM 0.5 MG TABLET PO PRN (17:34)
--- NOTE | 2023-02-22 17:35 | NUR ---
NURSE NOTE: PT AGITATED, ARGUING WITH OTHER PT. ATIVAN PO ADMINISTERED ORDERED. PT RAYMUNDO WELL. WILL CONT TO MONITOR.
[2023-02-22 20:06] VITALS: BP 151/67
[2023-02-23] MEDS: BLOOD SUGAR DIAGNOSTIC 1 EACH STRIP IN SCH ×4 (07:30→21:26)
[2023-02-23 08:00] VITALS: BP 115/63
[2023-02-23] MEDS: LINAGLIPTIN 5 MG TABLET PO SCH (08:50)
[2023-02-23] MEDS: FERROUS SULFATE (325 MG) 325 MG/TAB TABLET PO SCH (08:50)
[2023-02-23] MEDS: OLANZAPINE ZYDIS 5 MG TAB.RAPDIS PO SCH ×2 (08:50→17:14)
[2023-02-23] MEDS: GEMFIBROZIL 600 MG TABLET PO SCH ×2 (08:50→17:16)
[2023-02-23] MEDS: LACTULOSE 10 G/15 ML UDC (PYXIS) PO SCH (08:50)
[2023-02-23] MEDS: CARVEDILOL 12.5 MG TABLET PO SCH ×2 (08:51→17:16)
[2023-02-23] MEDS: DIVALPROEX SODIUM 125 MG CAP.SPRINK PO SCH ×4 (08:51→17:13)
[2023-02-23] MEDS: ASPIRIN EC 81 MG TABLET.DR PO SCH (08:52)
[2023-02-23] MEDS: AMLODIPINE BESYLATE 5 MG TABLET PO SCH (08:52)
--- NOTE | 2023-02-23 10:16 | NUR ---
RN- NOTES DEPAKOTE ORDER HELD DUE TO RECENT ADMINISTRATION AT 0900. WILL GIVE NEXT DOSE AT 1300.
[2023-02-23 16:00] VITALS: BP 141/81
[2023-02-23 20:05] VITALS: BP 112/53
--- NOTE | 2023-02-23 21:27 | NUR ---
Nurses Notes: Pt refused Accu Ck, Pt stated that his not diabetic.
[2023-02-24] MEDS: BLOOD SUGAR DIAGNOSTIC 1 EACH STRIP IN SCH ×4 (07:30→21:30)
[2023-02-24 08:00] VITALS: BP 104/57
[2023-02-24] MEDS: OLANZAPINE ZYDIS 5 MG TAB.RAPDIS PO SCH ×2 (08:45→17:45)
[2023-02-24] MEDS: FERROUS SULFATE (325 MG) 325 MG/TAB TABLET PO SCH (08:46)
[2023-02-24] MEDS: GEMFIBROZIL 600 MG TABLET PO SCH ×2 (08:46→17:46)
[2023-02-24] MEDS: ASPIRIN EC 81 MG TABLET.DR PO SCH (08:46)
[2023-02-24] MEDS: DIVALPROEX SODIUM 125 MG CAP.SPRINK PO SCH ×3 (08:47→17:45)
[2023-02-24] MEDS: LINAGLIPTIN 5 MG TABLET PO SCH (08:47)
[2023-02-24] MEDS: AMLODIPINE BESYLATE 5 MG TABLET PO SCH (08:48)
[2023-02-24] MEDS: CARVEDILOL 12.5 MG TABLET PO SCH ×2 (08:48→17:48)
[2023-02-24] MEDS: LACTULOSE 10 G/15 ML UDC (PYXIS) PO SCH (08:49)
[2023-02-24 16:00] VITALS: BP 125/64
[2023-02-24 20:44] VITALS: BP 126/69
--- NOTE | 2023-02-24 22:00 | NUR ---
RN NOTES PATIENT REFUSED ACCUCHECK. WILL CONTINUE TO MONITOR THE PATIENT.
[2023-02-25] MEDS: BLOOD SUGAR DIAGNOSTIC 1 EACH STRIP IN SCH ×3 (07:30→16:45)
[2023-02-25 08:00] VITALS: BP 120/65
[2023-02-25] MEDS: DIVALPROEX SODIUM 125 MG CAP.SPRINK PO SCH ×3 (08:12→16:16)
[2023-02-25] MEDS: FERROUS SULFATE (325 MG) 325 MG/TAB TABLET PO SCH (08:12)
[2023-02-25] MEDS: OLANZAPINE ZYDIS 5 MG TAB.RAPDIS PO SCH ×2 (08:12→16:17)
[2023-02-25] MEDS: LACTULOSE 10 G/15 ML UDC (PYXIS) PO SCH (08:13)
[2023-02-25] MEDS: LINAGLIPTIN 5 MG TABLET PO SCH (08:13)
[2023-02-25] MEDS: ASPIRIN EC 81 MG TABLET.DR PO SCH (08:13)
[2023-02-25] MEDS: GEMFIBROZIL 600 MG TABLET PO SCH ×2 (08:13→16:16)
[2023-02-25] MEDS: AMLODIPINE BESYLATE 5 MG TABLET PO SCH (08:13)
[2023-02-25] MEDS: CARVEDILOL 12.5 MG TABLET PO SCH ×2 (08:14→16:17)
--- NOTE | 2023-02-25 08:42 | NUR ---
SW Discharge Note: Patient will be discharged to [facility] located at [address] [place] [id number]; ([phone]). Please arrange transportation at 1PM. ALEXANDRA spoke with [facility] foreman ([phone]) who stated that pt is welcomed back today. Patients LPS conservalbert Pérez ([phone]) will need placement. Patient denies visual/auditory hallucinations. Patient denies suicidal or homicidal ideation. Patient will follow up with ([facility]ing [facility] Feeder) Dr. Vogt at [address] [facility] [address], [place] [address]; ([phone]) and (Psychiatrist) Dr. Sharif [address] [facility] [address], [place] [address]; ([phone]). Patient presented with euthymic mood and congruent affect.
--- NOTE | 2023-02-25 09:03 | NUR ---
Dr. Orellana made aware that the K is 5.6 and ordered Kayexalate 30 gm x1 po and said ok for discharge.
--- NOTE | 2023-02-25 09:23 | NUR ---
Dr. Paige gave an order to D/c pt. to [facility] and to follow up with psych and medical doctors. Psychiatrist reconciled on meds to continue in the facility. Pt. without distress, denies suicidal and homicidal. Belongings ready and discharge papers ready.
[2023-02-25] MEDS ORDERED: SODIUM POLYSTYRENE SULFONATE 15 G/60 ML BOTTLE PO ONE (09:30)
--- NOTE | 2023-02-25 10:30 | NUR ---
Dr. Garsia made aware of the discharge and reconciled meds to continue in the facility and ordered repeat BMP in AM in the facility. Pt. refused to picture for his skin issues.
--- NOTE | 2023-02-25 14:58 | NUR ---
Report given to Ed QUINTANA over the facility.
[2023-02-25 16:00] VITALS: BP 134/73
[2023-02-25 16:40] LABS: POTASSIUM 5.8 mmol/L (3.5-5.1)
--- NOTE | 2023-02-25 16:45 | NUR ---
pt refused accu check even after risk and benefits explained. will continue to monitor.
--- NOTE | 2023-02-25 18:26 | NUR ---
Ambulance came to pickle processor the pt. however BP is 185/86, GA 72 and ambulance can nit take pt. Notified Derderian and ordered Hydralazine 25 mg po x1.
[2023-02-25] MEDS ORDERED: hydrALAZINE HCL 25 MG TABLET PO ONE ×2 (18:30→19:00)
[2023-02-25 18:37] VITALS: BP 185/86
--- NOTE | 2023-02-25 19:30 | NUR ---
GPS RN NOTE, RECEIVED PATIENT AWAKE AND IN BED, NO S/S OR COMPLAINTS OF PAIN AT THIS TIME. PATIENT IS DISPLAYING NO S/S OF APPARENT DISTRESS AT THIS TIME. PATIENT BREATHING IS UNLABORED WITH EQUAL RISE AND FALL OF THE CHEST. PATIENT IS ALERT AND ORIENTED X 2 ON ROOM AIR WITH A SPO2 97%. PATIENT IS COMPLIANT WITH MEDICATION, ANXIOUS, RESTLESS, PARANOID AT TIMES, VERBALLY ABUSIVE, AND UNCOOPERATIVE. PATIENT DENIES SUICIDAL AND HOMICIDAL IDEATIONS AT THIS TIME. PATIENT ASSISTED WITH TURNING AND REPOSITIONING Q2HR AND PRN FOR COMFORT AND CIRCULATION. PATIENT HAS NO NEEDS AT THIS TIME. PATIENT EDUCATED ON THE USE OF THE CALL MAE. PATIENT BED SIDE RAILS UP X 2 FOR SAFETY. PATIENT BED IS LOCKED AND LOW. WILL CONTINUE TO MONITOR THIS PATIENT Q15 MINUTES WITH THE HELP OF STAFF TO MAINTAIN SAFETY.
[2023-02-25] MEDS: LORAZEPAM 0.5 MG TABLET PO PRN (19:44)
--- NOTE | 2023-02-25 19:44 | NUR ---
GPS RN NOTE, PATIENT HAS A COMPLAINT OF FEELING ANXIOUS AND IS REQUESTING ATIVAN AT THIS TIME. PATIENT VITAL SIGNS ARE STABLE. GAVE ATIVAN 1 MG PO Q6HR PRN ORDERED. WILL REASSESS FOR ANXIETY AND I WILL CONTINUE TO MONITOR THIS PATIENT WITH THE HELP OF STAFF.
--- NOTE | 2023-02-25 20:10 | NUR ---
GPS RN NOTE: PATIENT DISCHARGE TO [facility] AT 2009. PICKED UP BY AMBULANCE. PATIENT IN STABLE CONDITION NO S/S DISTRESS NOTED, VSS, PATIENT AMBULATORY WITH W/C, A/OX2, COOPERATIVE AND COMPLIANT WITH MEDICATIONS , DENIES SI/HI AVH, DENIES FEELING DEPRESSED. EXIT CARE DONE PRINTED , SIGN AND GIVEN TO PATIENT , ALL BELONGINGS RETURNED TO PATIENT. PATIENT REFUSED SKIN ASSESSMENT, REFUSED VACCINATIONS. REPORT GIVEN TO SHANTANU QUINTANA AT FACILITY.
[2023-02-26] MEDS ORDERED: SODIUM POLYSTYRENE SULF. PWD 15 GM UDC PO SCH (16:00)
== END 2023-02-25 20:13 | DRG 885 ==
LOC: ER 08:53 → GPS 13:54
PROVIDERS: ADMIT Psychiatry & Neurology Psychiatry
DX: F25.0 Schizoaffective disorder, bipolar type (principal); N17.9 Acute kidney failure, unspecified; N18.9 Chronic kidney disease, unspecified; E44.1 Mild protein-calorie malnutrition; I12.9 Hypertensive chronic kidney disease with stage 1 through stage 4 chronic kidney disease, or unspecified chronic kidney disease; E11.22 Type 2 diabetes mellitus with diabetic chronic kidney disease; E78.5 Hyperlipidemia, unspecified; E87.5 Hyperkalemia; F03.90 Unspecified dementia, unspecified severity, without behavioral disturbance, psychotic disturbance, mood disturbance, and anxiety; E88.09 Other disorders of plasma-protein metabolism, not elsewhere classified; D53.9 Nutritional anemia, unspecified; Z91.199 Patient's noncompliance with other medical treatment and regimen due to unspecified reason; R26.89 Other abnormalities of gait and mobility; Z20.822 Contact with and (suspected) exposure to COVID-19
CPT/HCPCS: 36415; 80048-TC; 80053-TC; 80061-TC; 80076-TC; 80164-TC; 82962-TC; 84132-TC; 84295-TC; 85025-TC; C9803; G0480; J1815; J3490